=== PATIENT | female | born 1980 | race Caucasian/White ===

== ENCOUNTER 2022-03-08 14:21 | Outpatient (REF) | payer OTHER, SELFPAY ==
[2022-03-08 14:40] LABS: MANUAL DIFF FLAG NO
[2022-03-08 14:51] LABS: Basophils Absolute Auto 0.1 X10*3/uL (0.0-0.2); Basophils Percent Auto 0.6 % (0-2); Eosinophils Absolute Auto 0.2 X10*3/uL (0.0-0.4); Eosinophils Percent Auto 2.3 % (0-4); Hematocrit 42.7 % (37.0-47.0); Hemoglobin 14.1 g/dl (12.0-16.0); Imm Gran Abs Auto 0.04 X10*3/uL (0.00-0.03); Imm Gran Pct Auto 0.5 % (0.0-0.4); Lymphocytes Absolute Auto 1.3 X10*3/uL (1.2-4.9); Lymphocytes Percent Auto 15.5 % (20-40); Mean Corpuscular Hemoglobin 28.3 pg (27.0-33.0); Mean Corpuscular Volume 85.6 fL (80.0-98.0); Mean Platelet Volume 10.6 fL (9.4-12.3); Monocytes Absolute Auto 0.8 X10*3/uL (0.1-1.2); Neutrophils Absolute Auto 6.2 x10*3/uL (2.0-8.3); Neutrophils Percent Auto 72.1 % (45-73); Platelet Count 255 X10*3/uL (160-400); Red Blood Count 4.99 X10*6/uL (4.20-5.50); Red Cell Distribution Width 14.7 % (11.0-16.0); White Blood Count 8.6 X10*3/uL (4.8-10.8)
[2022-03-08 15:41] LABS: Erythrocyte Sedimentation Rate 5 MM/HR (0-20)
[2022-03-08 15:53] LABS: Creatinine Urine 108.62 mg/dL; Protein/Creatinine Ratio, Ur 0.13 (<0.2); Total Protein Urine Random 14 mg/dL (<12)
[2022-03-08 15:56] LABS: Alanine Aminotransferase 45 U/L (0-31); Albumin Level 4.2 g/dL (3.5-5.0); Alkaline Phosphatase 63 U/L (39-117); Anion Gap 16 (12-20); Aspartate Amino Transferase 35 U/L (5-31); Bilirubin Total 0.5 mg/dL (0.0-1.0); Blood Urea Nitrogen 14 mg/dL (9-16); C Reactive Protein 0.38 mg/dL (< or = 0.50); Calcium 9.1 mg/dL (8.4-10.2); Carbon Dioxide 25 mmol/L (22-29); Chloride 104 mmol/L (96-108); Estimated Glomerular Filt Rate > 60; Glucose Random 82 mg/dL (60-115); Potassium 4.1 mmol/L (3.3-5.1); Sodium 141 mmol/L (135-145); Total Protein 7.1 g/dL (6.5-8.0)
[2022-03-12 12:12] LABS: Vitamin D 25-OH, D2 <4 ng/mL; Vitamin D 25-OH, D3 45 ng/mL; Vitamin D 25-OH, Total 45 ng/mL (30-100)
== END 2022-03-08 14:22 | disposition home or self-care (01) ==
LOC: HO.LAB 14:21
PROVIDERS: Visit Provider Internal Medicine Rheumatology
DX: M32.9 Systemic lupus erythematosus, unspecified (principal); Z79.899 Other long term (current) drug therapy; Z87.442 Personal history of urinary calculi
CPT/HCPCS: 36415; 80053; 82306; 84156; 85025; 85652; 86140; 99212

== ENCOUNTER 2022-08-06 08:05 | Outpatient (REF) | payer OTHER, SELFPAY ==
[2022-08-06 08:22] LABS: MANUAL DIFF FLAG NO
[2022-08-06 08:47] LABS: Basophils Percent Auto 0.4 % (0-2); Eosinophils Absolute Auto 0.2 X10*3/uL (0.0-0.4); Eosinophils Percent Auto 1.9 % (0-4); Hematocrit 40.6 % (37.0-47.0); Hemoglobin 13.2 g/dl (12.0-16.0); Imm Gran Abs Auto 0.06 X10*3/uL (0.00-0.03); Imm Gran Pct Auto 0.7 % (0.0-0.4); Lymphocytes Absolute Auto 1.2 X10*3/uL (1.2-4.9); Lymphocytes Percent Auto 14.1 % (20-40); Mean Corpuscular HGB Conc 32.5 g/dl (31.0-35.0); Mean Corpuscular Hemoglobin 28.1 pg (27.0-33.0); Mean Corpuscular Volume 86.4 fL (80.0-98.0); Mean Platelet Volume 10.6 fL (9.4-12.3); Monocytes Absolute Auto 0.7 X10*3/uL (0.1-1.2); Monocytes Percent Auto 8.4 % (2-11); Neutrophils Absolute Auto 6.2 x10*3/uL (2.0-8.3); Neutrophils Percent Auto 74.5 % (45-73); Platelet Count 268 X10*3/uL (160-400); Red Cell Distribution Width 15.9 % (11.0-16.0); White Blood Count 8.3 X10*3/uL (4.8-10.8)
[2022-08-06 09:03] LABS: Alanine Aminotransferase 9 U/L (0-31); Albumin Level 4.2 g/dL (3.5-5.0); Alkaline Phosphatase 66 U/L (39-117); Anion Gap 14 (12-20); Aspartate Amino Transferase 13 U/L (5-31); Bilirubin Total 0.5 mg/dL (0.0-1.0); Blood Urea Nitrogen 20 mg/dL (9-16); C Reactive Protein 0.85 mg/dL (< or = 0.50); Calcium 9.2 mg/dL (8.4-10.2); Carbon Dioxide 22 mmol/L (22-29); Chloride 107 mmol/L (96-108); Estimated Glomerular Filt Rate > 60; Glucose Random 94 mg/dL (60-115); Potassium 4.1 mmol/L (3.3-5.1); Sodium 139 mmol/L (135-145); Total Protein 6.8 g/dL (6.5-8.0)
[2022-08-06 09:35] LABS: Creatinine Urine 103.68 mg/dL; Protein/Creatinine Ratio, Ur 0.14 (<0.2); Total Protein Urine Random 14 mg/dL (<12)
[2022-08-06 09:46] LABS: Erythrocyte Sedimentation Rate 7 MM/HR (0-20)
[2022-08-10 07:33] LABS: Anti DNA DS Antibody 3 IU/mL; Complement C3 117 mg/dL (83-193)
== END 2022-08-06 08:06 | disposition home or self-care (01) ==
LOC: HO.LAB 08:05
PROVIDERS: PCP Internal Medicine; Visit Provider Internal Medicine Rheumatology
DX: M32.9 Systemic lupus erythematosus, unspecified (principal); Z79.899 Other long term (current) drug therapy
CPT/HCPCS: 36415; 80053; 84156; 85025; 85652; 86140; 86160; 86225

== ENCOUNTER → 2022-08-09 10:49 | Outpatient (BNVA) | payer OTHER, SELFPAY | PROVIDERS: PCP Internal Medicine; Visit Provider Internal Medicine Rheumatology | DX: M32.9 Systemic lupus erythematosus, unspecified (principal); N39.0 Urinary tract infection, site not specified; Z79.899 Other long term (current) drug therapy; Z87.442 Personal history of urinary calculi | CPT/HCPCS: 99212 ==

== ENCOUNTER 2023-01-01 09:37 | Outpatient (REF) | payer OTHER, SELFPAY ==
[2023-01-04 22:09] LABS: Anti DNA DS Antibody 3 IU/mL
[2023-01-04 22:38] LABS: Complement C3 117 mg/dL (83-193)
== END 2023-01-01 09:38 | disposition home or self-care (01) ==
LOC: HO.LAB 09:37
PROVIDERS: Visit Provider Internal Medicine Rheumatology
DX: M32.9 Systemic lupus erythematosus, unspecified (principal); Z79.899 Other long term (current) drug therapy
CPT/HCPCS: 36415; 80053; 84156; 85025; 85652; 86140; 86160; 86225

== ENCOUNTER 2023-02-24 09:51 | Outpatient (AMB) | payer OTHER, SELFPAY ==
--- NOTE | 2023-02-24 09:55 | MHC.OFFVIS ---
Intake Intake Visit Reasons: SLE Intake Note: Here for SLE follow up. Stain Remover Required: No Accompanied by: Self / Same As Patient Allergies Sulfa (Sulfonamide Antibiotics) Allergy (Intermediate, Verified 02/24/23 10:02) Rash levofloxacin [From Levaquin] Adverse Reaction (Unknown, Unverified 02/24/23 10:02) Unknown Medication List - Last Reconciled 02/24/23 by Imtiaz Willis MD cholecalciferol (vitamin D3) 50 mcg PO DAILY cyclosporine 0.05% drps ophthalmic (eye) fosfomycin tromethamine 1 packet PO .once a week hydroxychloroquine 200 mg PO BID norethindrone acetate 5 mg PO DAILY HPI HPI Comments History of Present Illness Details The patient returns for evaluation of her SLE. She remains on 200 mg twice a day hydroxychloroquine but admits that she has acquired some prednisone from a friend. She does take that occasionally. Iit sounds like she takes 20 mg for a couple of days and then she improves. The reason she takes the pains is she gets hand arthralgias and overwhelming fatigue in the mornings. There been no problems recently with abdominal pain, chest pain, oral ulcers, fever, or skin rashes. She did have a problem with kidney kidney stones in the past. She thinks they may have returned so has plans to see the urologist. She is currently on some fosfomycin once a week to try to prevent recurrent UTI. She also takes norethindrone for her a regular menses. She says the Restasis eyedrops irritate her eyes. She sometimes skips the dose. There still is some ocular dryness. PFSH Surgical History H/O breast augmentation History of back surgery Hx of cholecystectomy Hx of hernia repair Hx of lithotripsy Hx of tonsillectomy Family History Mother Mental disorder Breast cancer, Onset Age: 50 Depression Anemia Fibromyalgia Father Stomach ulcer Sister Diabetes Brother Asthma Maternal Grandfather Colon cancer, Onset Age: 80 FH: prostate cancer Family/Other Ovarian cancer Social History Alcohol intake: current Alcohol intake frequency: holidays/special occasions only Patient Tobacco Use Status: Never used Tobacco Substance Use Type: Marijuana Current occupational status: employed Current occupation: [employer] Review of Systems Const Details: Episodes of fatigue that occur in conjunction with some hand arthralgias. Negative for appetite change, weight change, fever, chills, malaise Eyes Details: Dry eyes, somewhat irritating with Restasis. Negative for vision change, headaches and dizziness ENT Details: Negative for hearing change, tinnitus, oral ulcer, nose bleeds and oral dryness. Card Details: Negative chest pain, edema and syncope Resp Details: Negative for SOB, cough and wheezing GI Details: Negative indigestion/heartburn, nausea, abdominal pain, bowel changes, diarrhea, constipation and bloody stool. Details: Occasional flank pains. She wonders if this could be recurrence of her kidney stones. Negative for dysuria, hematuria, nocturia, decreased force/flow and genital discharge Skin/Breast Details: Negative for itching, rash, hives, Raynaud's symptoms, sun sensitivity, and skin cancer Psych Details: Negative for anxiety, depression and stress Felix/Lymph Details: Negative for excessive bruising or bleeding. Physical Exam APPEARANCE: Patient in no acute distress EYES no redness, pupils equal and reactive to light, eyelids normal EARS: External ear normal, canal clear and tympanic membrane normal. NOSE/SINUS: Airflow through both nares, no nasal discharge, no bleeding THROAT: Oral mucosa moist, no ulcerations NECK: No thyromegaly or masses, no adenopathy, trachea midline. HEART: Regulrar rhythm, S1-S2 heard, no murmurs, rubs or gallops. LUNG: Clear to percussion and auscultation ABD: Normal bowel sounds, no organomegaly, masses or tenderness. EXTREMITIES: No edema, no calf tenderness, normal peripheral pulses. NEURO: Oriented and alert x3. No focal weakness. Reflexes symmetric. Gait normal. SKIN: No inflammatory or neoplastic lesions. Normal color and turgor JOINT EXAM:.?? There is normal pain-free range of motion of the joints.? ? No areas of joint swelling.?? ? 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 Negative anti ds-DNA, SS-A, SS-B 01/2017 - present - hydroxychloroquine and prednisone; Eye exam OK 04/14 - azathioprine stopped 01/2021 (equivocal response, product unavailable). Prednisone off/on 02/2021 Benlysta - 07/2021( patient improved, off prednisone) Code(s): M32.9 - Systemic lupus erythematosus, unspecified Plan SLE with no signs of active disease. Recent blood work also looked good with no active lupus markers are inflammatory markers. She has been exercising and I encouraged her to continue with that but also to couple with that some calorie restriction to help her lose weight. However some of her morning stiffness, hand pain and fatigue could be some breakthrough SLE activity. It does seem to be helped with occasinal prednisone and she is requesting a short supply in case she needs it. I think that is reasonable. I will give her prescription for the 10 mg tablets to take 2 for 3 days then for 1 for 3 days if needed. She will stay on the hydroxychloroquine. She has an upcoming eye exam. I told her that I was retiring as of the of the year but we would meet again in May. 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 therapy Protein Creatinine Ratio, Ur Today M32.9 - Systemic lupus erythematosus, unspecified, Z79.899 - Other [place] [facility] (current[facility] drug therapy Complete Blood Count Auto Diff Today M32.9 - Systemic lupus erythematosus, unspecified, Z79.899 - Other [place] [facility] (current[facility] drug therapy Erythrocyte Sedimentation Rate Today M32.9 - Systemic lupus erythematosus, unspecified, Z79.899 - Other [place] [facility] (current[facility] drug therapy Complement C3 Today M32.9 - Systemic lupus erythematosus, unspecified, Z79.899 - Other [place] [facility] (current[facility] drug therapy Complement C4 Today M32.9 - Systemic lupus erythematosus, unspecified, Z79.899 - Other termite control representative (current) drug therapy Anti DNA DS Antibody Today M32.9 - Systemic lupus erythematosus, unspecified, Z79.899 - Other [place] [facility] (current) drug therapy Medications: New prednisone For flare-up: 2 daily for 3 days, then one daily for 3 days 9 tabs 2RF M32.9 - Systemic lupus erythematosus, unspecified Coding Level of Care Code Est Pt Level 3 (59733) Diagnoses 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
== END 2023-02-24 10:28 | disposition home or self-care (01) ==
PROVIDERS: PCP Internal Medicine; Visit Provider Internal Medicine Rheumatology
DX: Z79.899 Other long term (current) drug therapy (principal); M32.9 Systemic lupus erythematosus, unspecified
CPT/HCPCS: 99213

== ENCOUNTER → 2023-02-24 09:51 | Outpatient (BNVA) | payer OTHER, SELFPAY | PROVIDERS: PCP Internal Medicine; Visit Provider Internal Medicine Rheumatology ==

== ENCOUNTER 2023-05-06 09:49 | Outpatient (REF) | payer OTHER, SELFPAY ==
[2023-05-06 10:16] LABS: MANUAL DIFF FLAG NO
[2023-05-06 11:04] LABS: Basophils Percent Auto 0.4 % (0-2); Eosinophils Absolute Auto 0.1 X10*3/uL (0.0-0.4); Eosinophils Percent Auto 1.4 % (0-4); Hematocrit 44.5 % (37.0-47.0); Hemoglobin 15.1 g/dl (12.0-16.0); Imm Gran Abs Auto 0.08 X10*3/uL (0.00-0.03); Imm Gran Pct Auto 1.1 % (0.0-0.4); Lymphocytes Absolute Auto 1.5 X10*3/uL (1.2-4.9); Mean Corpuscular HGB Conc 33.9 g/dl (31.0-35.0); Mean Corpuscular Hemoglobin 30.5 pg (27.0-33.0); Mean Corpuscular Volume 89.9 fL (80.0-98.0); Mean Platelet Volume 11.5 fL (9.4-12.3); Monocytes Absolute Auto 0.8 X10*3/uL (0.1-1.2); Monocytes Percent Auto 10.4 % (2-11); Neutrophils Absolute Auto 4.8 x10*3/uL (2.0-8.3); Neutrophils Percent Auto 65.7 % (45-73); Platelet Count 236 X10*3/uL (160-400); Red Blood Count 4.95 X10*6/uL (4.20-5.50); Red Cell Distribution Width 12.9 % (11.0-16.0); White Blood Count 7.3 X10*3/uL (4.8-10.8)
[2023-05-06 11:36] LABS: Anion Gap 11 (12-20); Blood Urea Nitrogen 18 mg/dL (9-16); C Reactive Protein 0.26 mg/dL (< or = 0.50); Calcium 9.2 mg/dL (8.4-10.2); Carbon Dioxide 24 mmol/L (22-29); Chloride 108 mmol/L (96-108); Estimated Glomerular Filt Rate > 60; Glucose Random 88 mg/dL (60-115); Potassium 3.8 mmol/L (3.3-5.1); Sodium 139 mmol/L (135-145)
[2023-05-06 12:02] LABS: Erythrocyte Sedimentation Rate 2 MM/HR (0-20)
[2023-05-06 12:28] LABS: Creatinine Urine 151.44 mg/dL; Protein/Creatinine Ratio, Ur 0.11 (<0.2); Total Protein Urine Random 16 mg/dL (<12)
[2023-05-09 12:53] LABS: Complement C3 83 mg/dL (83-193)
[2023-05-09 17:32] LABS: Anti DNA DS Antibody 3 IU/mL
== END 2023-05-06 09:50 | disposition home or self-care (01) ==
LOC: HO.LAB 09:49
PROVIDERS: Visit Provider Internal Medicine Rheumatology
DX: M32.9 Systemic lupus erythematosus, unspecified (principal); Z79.899 Other long term (current) drug therapy
CPT/HCPCS: 36415; 80048; 82570; 84156; 85025; 85652; 86140; 86160; 86225

== ENCOUNTER 2023-05-12 08:05 | Outpatient (AMB) | payer OTHER, SELFPAY ==
--- NOTE | 2023-05-12 08:09 | A.OFFVIS_ITS ---
Intake Vital Signs 05/12/23 08:12 Height 5 ft 7 in Weight 222 lb 10.67 oz BMI 34.9 BP 146/84 H Blood Pressure Location Lt brachial Position Sitting Pulse 71 Pulse Source Pulse Oximeter Temp 97.9 F Temp Source Skin Pulse Oximetry (%) 97 Intake Visit Reasons: sle Intake Note: Patient presents today to follow up on SLE. Last seen by Dr. Willis on 02/24/23. Reports having eye exam done, not sure. Was going to eye and lasik in [place]. Would like new referral ?? 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 Accompanied by: Self / Same As Patient Allergies Sulfa (Sulfonamide Antibiotics) Allergy (Intermediate, Verified 05/12/23 08:15) Rash levofloxacin [From Levaquin] Adverse Reaction (Unknown, Unverified 05/12/23 08:15) Unknown Medication List - Last Reconciled 05/12/23 by Imtiaz Willis MD cholecalciferol (vitamin D3) 50 mcg PO DAILY fosfomycin tromethamine 1 packet PO .once a week hydroxychloroquine 200 mg PO BID norethindrone acetate 5 mg PO DAILY prednisone For flare-up: 2 daily for 3 days, then one daily for 3 days PRN; HPI HPI Comments History of Present Illness Details The patient returns for evaluation of her SLE. She remains on hydroxychloroquine 200 mg twice a day and Aleve once or twice a day for aches and pains. She says she does have bad spells when she takes the prednisone as we had discussed, 20 mg for 3 days, then 10 mg for 3 days. It sounds like these episodes consist of basically arthralgias and myalgias but no swelling or rash. She has done this twice in the last 2 months or so. That seemed to help her although not remarkably so. She has been having more back pain and did have spinal x-rays reportedly showing degenerative disease. She was worried that it could be or kidney stones but pains are more related to position and lumbar range of motion. She does not notice any joint swelling, oral ulcers or skin rash. She did have eye evaluation earlier this year but wants to switch to a different eye service. She found the Restasis drops irritating so she is no longer taking them, just [id number] drops. [facility] Surgical History History of back surgery Hx of lithotripsy Hx of hernia repair Hx of cholecystectomy H/O breast augmentation Hx of tonsillectomy Family History Mother Mental disorder Breast cancer, Onset Age: 50 Depression Anemia Fibromyalgia Father Stomach ulcer Sister Diabetes Brother Asthma Maternal Grandfather Colon cancer, Onset Age: 80 FH: prostate cancer Family/Other Ovarian cancer Social History Alcohol intake: current Alcohol intake frequency: holidays/special occasions only Patient Tobacco Use Status: Never used Tobacco Substance Use Type: Marijuana Current occupational status: employed Current occupation: [employer] Review of Systems Const Details: Intermittent fatigue. She is exercising regularly at a gym doing spinning classes. Negative for appetite change, weight change, fever, chills, malaise Eyes Details: Intermittent dry eyes continue. She is using [id number] eyedrops, the Restasis caused eye irritation. Negative for vision change,headaches and dizziness ENT Details: Negative for hearing change, tinnitus, oral ulcer, nose bleeds and oral dryness. Card Details: Negative chest pain, edema and syncope Resp Details: Negative for SOB, cough and wheezing GI Details: Negative indigestion/heartburn, nausea, abdominal pain, bowel changes, diarrhea, constipation and bloody stool. Details: Negative for dysuria, hematuria, nocturia, decreased force/flow and genital discharge Skin/Breast Details: Negative for itching, rash, hives, Raynaud's symptoms, sun sensitivity, and skin cancer Neuro Details: Negative for epilepsy, palsy, stroke, changes in speech, tingling and weakness Psych Details: Negative for anxiety, depression and stress Endo Details: Negative for polyuria and polydypsia Felix/Lymph Details: Negative for excessive bruising or bleeding. Physical Exam Vital Signs: Last Vital Signs Temp 97.9 F 05/12/23 08:12 Pulse 71 05/12/23 08:12 BP 146/84 H 05/12/23 08:12 Pulse Ox 97 05/12/23 08:12 BMI result Body Mass Index 34.9 APPEARANCE: Patient in no acute distress EYES no redness, pupils equal and reactive to light, eyelids normal EARS: External ear normal, canal clear and tympanic membrane normal. NOSE/SINUS: Airflow through both nares, no nasal discharge, no bleeding THROAT: Oral mucosa moist, no ulcerations NECK: No thyromegaly or masses, no adenopathy, trachea midline. HEART: Regulrar rhythm, S1-S2 heard, no murmurs, rubs or gallops. LUNG: Clear to percussion and auscultation ABD: Normal bowel sounds, no organomegaly, masses or tenderness. EXTREMITIES: No edema, no calf tenderness, normal peripheral pulses. NEURO: Oriented and alert x3. No focal weakness. Reflexes symmetric. Gait normal. SKIN: No inflammatory or neoplastic lesions. Normal color and turgor JOINT EXAM:.?? Some pain with extremes of lumbar flexion extension with some muscle tenderness. Straight leg raising and right lower extremity reflexes are intact. There is normal pain-free range of motion of the peripheral joints.? ? No areas of joint swelling or tenderness.?? Tender points:.? mild tenderness to digital palpation at the occiput, trapezius, second rib, lateral epicondyle, knees, greater trochanter and gluteal area bilaterally. ? 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 Negative anti ds-DNA, SS-A, SS-B 01/2017 - present - hydroxychloroquine and prednisone; Eye exam OK 04/14,11/2022 - azathioprine stopped 01/2021 (equivocal response, product unavailable). Prednisone off/on 02/2021 Benlysta - 07/2021( patient improved, remains on hydroxychloroquine, on prn prednisone) Code(s): M32.9 - Systemic lupus erythematosus, unspecified Plan The patient still has some episodic migratory arthralgias and fatigue. Today there are no signs of an active inflammatory arthritis. She apparently had an x-ray somewhere showing lumbar degenerative disease which is not too surprising. We discussed possible referral for PT to some lumbar exercises but she wants to do them on her own for now. I think she has some degree of underlying fibromyalgia that could give giving her some of these aches and pains but she does respond occasional prednisone so we will stay with that occasional usage for now. I will continue the hydroxychloroquine as well. She was given a referral to [facility] for her dry eyes and monitoring her hydroxychloroquine use. I did refill the prednisone to be used occasionally. I also encouraged Tylenol or Aleve use if symptoms of pain are present. She should continue with light aerobic activity as she is engaged in. A follow-up in 5 months would be reasonable. Orders: Orders Comprehensive Met. Panel Today M32.9 - Systemic lupus erythematosus, unspecified Erythrocyte Sedimentation Rate Today M32.9 - Systemic lupus erythematosus, unspecified Complete Blood Count Auto Diff Today M32.9 - Systemic lupus erythematosus, unspecified Protein Creatinine Ratio, Ur Today M32.9 - Systemic lupus erythematosus, unspecified C Reactive Protein Today M32.9 - Systemic lupus erythematosus, unspecified Referrals Ophthalmology Referral M32.9 - Systemic lupus erythematosus, unspecified, Z79.899 - Other correction (current) drug therapy Medications: Changed From prednisone For flare-up: 2 daily for 3 days, then one daily for 3 days PRN; M32.9 - Systemic lupus erythematosus, unspecified To prednisone For flare-up: 2 daily for 3 days, then one daily for 3 days; 9 tabs 2RF M32.9 - Systemic lupus erythematosus, unspecified Coding Level of Care Code Est Pt Level 3 (73125) Diagnoses Long-term use of hydroxychloroquine Z79.899 Osteoarthritis of lumbar spine M47.816 Systemic lupus M32.9
[2023-05-12 08:12] VITALS: BP 146/84; PULSE 71; TEMP 36.6; O2SAT 97; BMI 34.9
== END 2023-05-12 09:10 | disposition home or self-care (01) ==
PROVIDERS: PCP Internal Medicine; Visit Provider Internal Medicine Rheumatology
DX: Z79.899 Other long term (current) drug therapy (principal); M47.816 Spondylosis without myelopathy or radiculopathy, lumbar region; M32.9 Systemic lupus erythematosus, unspecified
CPT/HCPCS: 99213

== ENCOUNTER → 2023-05-12 08:05 | Outpatient (BNVA) | payer OTHER, SELFPAY | PROVIDERS: PCP Internal Medicine; Visit Provider Nurse Practitioner Family ==

== ENCOUNTER 2023-07-28 11:09 | Outpatient (AMB) | payer OTHER, SELFPAY ==
--- NOTE | 2023-07-28 11:10 | MHC.OFFVIS ---
Intake Vital Signs 07/28/23 11:11 Height 5 ft 7 in Weight 229 lb BMI 35.9 Intake Visit Reasons: umbilical hernia Intake Note: This patient presents for an assessment for an umbilical hernia. Patient c/o; reports bulge, reports occasional discomfort, reports no changes in bowel movements habits. 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 She had undergone laparoscopic cholecystectomy in [place] over 10 years ago. She says she developed a hernia above her umbilicus and this was repaired a few months later laparoscopically. However, she says the hernia on the same area above the umbilicus has recurred. She has had this for about 10 years now This has been starting to bother her so she wants this repaired. She denies GI complaints. COUNTS INCLUDE 234 BEDS AT THE [facility] Medical History (Updated 07/28/23 @ 11:37 by Ran Golden MD) Morbid obesity Incisional hernia Surgical History History of back surgery Hx of lithotripsy Hx of hernia repair Hx of cholecystectomy H/O breast augmentation Hx of tonsillectomy Family History Mother Mental disorder Breast cancer, Onset Age: 50 Depression Anemia Fibromyalgia Father Stomach ulcer Sister Diabetes Brother Asthma Maternal Grandfather Colon cancer, Onset Age: 80 FH: prostate cancer Family/Other Ovarian cancer Social History Alcohol intake: current Alcohol intake frequency: holidays/special occasions only Patient Tobacco Use Status: Never used Tobacco Substance Use Type: Marijuana Current occupational status: employed Current occupation: [employer] Review of Systems Const Denies chills and Denies fever(s) Card Denies chest pain, Denies dyspnea and Denies dyspnea on exertion Resp Denies cough, Denies dyspnea and Denies dyspnea on exertion GI Denies hematochezia and Denies change in bowel habits Denies hematuria Musc Denies back pain and Denies limited range of motion Neuro Denies focal weakness and Denies convulsions Psych Denies depression and Denies mood swings Physical Exam Vital Signs: BMI result Body Mass Index 35.9 Const Other: Obese General: comfortable and no acute distress Orientation/consciousness: patient oriented x3 Neck Neck: Yes no lymphadenopathy Resp Auscultation: clear to auscultation bilaterally Cardio Rhythm: regular rhythm GI Other: Vague hernia above the umbilicus, about 3 cm, easily reducible, more pronounced with Valsalva Palpation (GI): Soft to palpation, nontender and no guarding Neuro General: patient oriented x3 Assessment & Plan Assessment & Plan (1) Incisional hernia: Code(s): K43.2 - Incisional hernia without obstruction or gangrene Plan: She has what appears to be recurrent hernia on the port site above the umbilicus. This appears to be partially reducible. She wants this repaired. I explained the technique of repair with likely mesh placement. I reviewed the risks including but not limited to bleeding, infections, bowel injury, recurrence, poor healing, as well as the benefits and alternatives. She does have a high BMI so she is at risk for recurrence. She understands the above and wants to proceed I ordered for a CT scan of the abdomen and pelvis to define this hernia defect better as she has a large amount of subcutaneous fat which makes exam difficult. Orders: Orders CT abdomen pelvis wo IV con Today K43.2 - Incisional hernia without obstruction or gangrene Coding Level of Care Code New Pt Level 3 (99546) Diagnoses Incisional hernia K43.2
[2023-07-28 11:11] VITALS: BMI 35.9
== END 2023-07-28 11:34 | disposition home or self-care (01) ==
PROVIDERS: PCP Internal Medicine; Visit Provider Surgery
DX: K43.2 Incisional hernia without obstruction or gangrene (principal)
CPT/HCPCS: 99203

== ENCOUNTER → 2023-07-28 11:09 | Outpatient (BNVA) | payer OTHER, SELFPAY | PROVIDERS: PCP Internal Medicine; Visit Provider Surgery ==

== ENCOUNTER 2023-09-05 08:25 | Outpatient (REF) | payer OTHER, SELFPAY ==
--- NOTE | ~2023-09-05 | CT_ITS ---
EXAMINATION: CT ABDOMEN WITHOUT CONTRAST CLINICAL INFORMATION: Incisional hernia without obstruction or gangrene. COMPARISON: CT abdomen pelvis 09/22/2022. TECHNIQUE: Contiguous axial thin section helical images of the abdomen were performed without contrast. The data set was reformatted in the coronal and sagittal planes and reviewed on an independent workstation. This CT examination was performed using dose optimization techniques as appropriate, variously including the following: *Automated exposure control *Adjustment of mA and/or kV according to patient size (this includes techniques or standardized protocols for targeted exams where dose is matched to indication/reason for exam; i.e. extremities or head) *Use of iterative reconstruction technique DLP: 637 mGy-cm FINDINGS: LUNG BASES: The visualized lung bases are unremarkable. Bilateral breast prostheses are partially visualized. LIVER, GALLBLADDER, AND BILIARY TREE: The liver is normal in size, shape, and attenuation. No focal hepatic lesion or biliary ductal dilatation is present. The gallbladder is unremarkable with no evidence of radiopaque gallstones, gallbladder wall thickening, or obvious pericholecystic inflammatory changes. PANCREAS: Unremarkable. SPLEEN: Unremarkable. ADRENAL GLANDS: Unremarkable. KIDNEYS AND URETERS: The kidneys are normal in size, shape, and attenuation there is bilateral nonobstructing nephrolithiasis with the largest stones measuring 3 to 4 mm in size.. No hydronephrosis, hydroureter, or ureteral calculi seen. No perinephric stranding. GASTROINTESTINAL TRACT: The small and large bowel are unremarkable aside from colonic diverticula without diverticulitis. The region of the appendix is not included on this abdominal CT. ABDOMINAL WALL: There is a periumbilical hernia seen containing only fat. The peritoneal defect is 2.9 x 3.8 cm. The hernia sac is not all included on this CT abdomen only and measures 5.9 x 3.5 in maximal transverse dimension. Appearances are quite similar to the 09/22/2022 CT scan from [facility]. LYMPH NODES: No retroperitoneal lymphadenopathy. VASCULAR: Unremarkable. OSSEOUS STRUCTURES: Degenerative changes are seen at L4-L5 and L5-S1. CT/CT abdomen wo IV con IMPRESSION: 1. Periumbilical hernia containing only fat. 2. Bilateral nonobstructing nephrolithiasis. 3. Colonic diverticulosis without diverticulitis. 4. Degenerative changes L4-L5 and L5-S1. Fleischner guidelines were followed.
== END 2023-09-05 08:26 | disposition home or self-care (01) ==
LOC: HO.CT 08:25
PROVIDERS: PCP Internal Medicine; Visit Provider Surgery
DX: K43.2 Incisional hernia without obstruction or gangrene (principal)
CPT/HCPCS: 74150

== ENCOUNTER 2023-10-11 08:35 | Outpatient (AMB) | payer OTHER, SELFPAY ==
--- NOTE | 2023-10-11 08:42 | A.OFFVIS_ITS ---
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 Willis, presents today for follow up and test results. Patient reports tiredness and malaise. 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 Gonzalez 43 yoF returns for evaluation of her SLE. She remains on hydroxychloroquine 200 mg twice a day and Aleve once or twice a day for aches and pains. She feels prednisone is the only thing that helps her feel alert and improved when she has episodes of arthralgias and myalgias. She does not get swelling or rash. She denies joint swelling, oral ulcers or skin rash. She did have eye evaluation done. She continues with xlio-pux-wdyjgep drops. She is following with Urology and is being treated for interstitial cystitis. --Umbilical Hernia Surgery November 152023 --Vein ablation treatment October 17 05/12/2023 Dr. Willis: The patient returns for evaluation of her SLE. She remains on hydroxychloroquine 200 mg twice a day and Aleve once or twice a day for aches and pains. She says she does have bad spells when she takes the prednisone as we had discussed, 20 mg for 3 days, then 10 mg for 3 days. It sounds like these episodes consist of basically arthralgias and myalgias but no swelling or rash. She has done this twice in the last 2 months or so. That seemed to help her although not remarkably so. She has been having more back pain and did have spinal x-rays reportedly showing degenerative disease. She was worried that it could be or kidney stones but pains are more related to position and lumbar range of motion. She does not notice any joint swelling, oral ulcers or skin rash. She did have eye evaluation earlier this year but wants to switch to a different eye service. She found the Restasis drops irritating so she is no longer taking them, just knhr-jme-fjfeusd drops. [facility] Medical History (Updated 10/11/23 @ 09:20 by Kierra Dye [facility]) Fatigue Morbid obesity Incisional hernia Surgical History History of back surgery Hx of lithotripsy Hx of hernia repair Hx of cholecystectomy H/O breast augmentation Hx of tonsillectomy Family History Mother Mental disorder Breast cancer, Onset Age: 50 Depression Anemia Fibromyalgia Father Stomach ulcer Sister Diabetes Brother Asthma Maternal Grandfather Colon cancer, Onset Age: 80 FH: prostate cancer Family/Other Ovarian cancer Social History Alcohol intake: current Alcohol intake frequency: holidays/special occasions only Patient Tobacco Use Status: Never used Tobacco Substance Use Type: Marijuana Current occupational status: employed Current occupation: [employer] Review of Systems Const All systems reviewed & are unremarkable except as noted in HPI and below Physical Exam Vital Signs: Last Vital Signs Pulse 73 10/11/23 08:51 BP 150/100 H 10/11/23 08:51 Pulse Ox 94 10/11/23 08:51 Oxygen Delivery Method Room Air 10/11/23 08:51 BMI result Body Mass Index 36.4 APPEARANCE: Patient in no acute distress EYES no redness, pupils equal and reactive to light, eyelids normal EARS: External ear normal, canal clear and tympanic membrane normal. NOSE/SINUS: Airflow through both nares, no nasal discharge, no bleeding THROAT: Oral mucosa moist, no ulcerations NECK: No thyromegaly or masses, no adenopathy, trachea midline. HEART: Regular rhythm, S1-S2 heard, no murmurs, rubs or gallops. LUNG: Clear to auscultation ABD: Normal bowel sounds, no organomegaly, masses or tenderness. EXTREMITIES: No edema, no calf tenderness, normal peripheral pulses. NEURO: Oriented and alert x3. No focal weakness. Reflexes symmetric. Gait normal. SKIN: No inflammatory or neoplastic lesions. Normal color and turgor JOINT EXAM:.?? Some pain with extremes of lumbar flexion extension with some muscle tenderness. Straight leg raising and right lower extremity reflexes are intact. There is normal pain-free range of motion of the peripheral joints.? ? No areas of joint swelling or tenderness.?? Tender points:.? mild tenderness to digital palpation at the occiput, trapezius, second rib, lateral epicondyle, knees, greater trochanter and gluteal area bilaterally. ? Results Reviewed Results Reviewed: Laboratory Tests 05/06/23 10:15 WBC 7.3 Hgb 15.1 ESR 2 Creatinine 0.69 C-Reactive Protein 0.26 Double Strand DNA Ab 3 Complement C3 83 Complement C4 15 Assessment & Plan Assessment & Plan (1) Long-term use of hydroxychloroquine: Code(s): Z79.899 - Other longterm (current) drug therapy (2) Osteoarthritis of lumbar spine: Code(s): M47.816 - Spondylosis without myelopathy or radiculopathy, lumbar region Qualifiers: Spinal osteoarthritis complication: without myelopathy or radiculopathy Qualified Code(s): M47.816 - Spondylosis without myelopathy or radiculopathy, lumbar region (3) Systemic lupus: Comment: Initial manifestations of left sided pleural effusion and pericardial effusion, arthritis, positive SALAS,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 Negative anti ds-DNA, SS-A, SS-B 01/2017 - present - hydroxychloroquine and prednisone; Eye exam OK 04/14,11/2022 - azathioprine stopped 01/2021 (equivocal response, product unavailable). Prednisone off/on 02/2021 Benlysta - 07/2021( patient improved, remains on hydroxychloroquine, on prn prednisone) Code(s): M32.9 - Systemic lupus erythematosus, unspecified Qualifiers: Systemic lupus erythematosus organ involvement: other Systemic lupus erythematosus type: other Qualified Code(s): M32.19 - Other organ or system involvement in systemic lupus erythematosus Plan #SLE: The patient continues with episodic migratory arthralgias and fatigue especially after her spinning class which she does 4 times per week. Today there are no signs of an active inflammatory arthritis but she is concerned about her level of fatigue. She has used Benlysta but denies effectiveness especially with the fatigue. This is unfortunate since Benlysta is typically helpful with fatigue. She is not anemic, denies cardiovascular concerns and none observed on PE. She denies depression or thyroid issues which could cause fatigue. Her LUPUS measures have been WNL. Continue the hydroxychloroquine as well. I did refill the prednisone to be used occasionally. After her surgeries we will discuss options for immunosuppressive therapy that can be added to the HCQ. #OA Lumbar:Lumbar degenerative disease. We discussed possible referral for PT to some lumbar exercises but she wants to do them on her own for now. I think she has some degree of underlying fibromyalgia that could give giving her some of these aches and pains but she does respond occasional prednisone so we will stay with that occasional usage for now. I also encouraged Tylenol or Aleve use if symptoms of pain are present. She should continue with her exercise activities as tolerated. 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 We requested the records. Will order updated CBC, CMP and lupus markers. A follow-up in 5 months would be reasonable. I spent 25 minutes reviewing history, evaluating patient and documenting. Orders: Orders Comprehensive Met. Panel Today M32.9 - Systemic lupus erythematosus, unspecified, Z79.899 - Other intermediate card tender (current) drug therapy Immunoglobulins,IgG IgA IgM Today M32.19 - Other organ or system involvement in systemic lupus erythematosus, Z79.899 - Other intermediate card tender (current) drug therapy TSH reflex Free T4 Today R53.83 - Other fatigue C Reactive Protein Today M32.9 - Systemic lupus erythematosus, unspecified, Z79.899 - Other longterm (current) drug therapy Complete Blood Count Auto Diff Today M32.9 - Systemic lupus erythematosus, unspecified, Z79.899 - Other longterm (current) drug therapy Erythrocyte Sedimentation Rate Today M32.9 - Systemic lupus erythematosus, unspecified, Z79.899 - Other intermediate card tender (current) drug therapy Protein Creatinine Ratio, Ur Today M32.9 - Systemic lupus erythematosus, unspecified, Z79.899 - Other longterm (current) drug therapy Sjogren's Antibodies Today M32.19 - Other organ or system involvement in systemic lupus erythematosus, Z79.899 - Other longterm (current) drug therapy Immunofixation Pnl, Serum Today M32.19 - Other organ or system involvement in systemic lupus erythematosus, Z79.899 - Other longterm (current) drug therapy Protein Electrophoresis, Serum Today M32.19 - Other organ or system involvement in systemic lupus erythematosus, Z79.899 - Other longterm (current) drug therapy Medications: New prednisone 5 mg PO DAILY 60 tabs 0RF M32.19 - Other organ or system involvement in systemic lupus erythematosus, Z79.899 - Other intermediate card tender (current) drug therapy Coding Level of Care Code Est Pt Level 4 (78808) Diagnoses Long-term use of hydroxychloroquine Z79.899 Spondylosis of lumbar region without myelopathy or radiculopathy M47.816 Spinal osteoarthritis complication: without myelopathy or radiculopathy Other systemic lupus erythematosus with other organ involvement M32.19 Systemic lupus erythematosus organ involvement: other Systemic lupus erythematosus type: other
[2023-10-11 08:51] VITALS: BP 150/100; PULSE 73; O2SAT 94; BMI 36.4
== END 2023-10-11 09:11 | disposition home or self-care (01) ==
PROVIDERS: PCP Internal Medicine; Visit Provider Nurse Practitioner Family
DX: Z79.899 Other long term (current) drug therapy (principal); M47.816 Spondylosis without myelopathy or radiculopathy, lumbar region; M32.19 Other organ or system involvement in systemic lupus erythematosus
CPT/HCPCS: 99214

== ENCOUNTER → 2023-10-11 08:35 | Outpatient (BNVA) | payer OTHER, SELFPAY | PROVIDERS: PCP Internal Medicine; Visit Provider Nurse Practitioner Family ==

== ENCOUNTER 2023-10-11 09:17 | Outpatient (REF) | payer OTHER, SELFPAY ==
[2023-10-11 10:58] LABS: MANUAL DIFF FLAG NO
[2023-10-11 11:06] LABS: Basophils Percent Auto 0.4 % (0-2); Eosinophils Absolute Auto 0.1 X10*3/uL (0.0-0.4); Hematocrit 45.9 % (37.0-47.0); Hemoglobin 15.7 g/dl (12.0-16.0); Imm Gran Abs Auto 0.06 X10*3/uL (0.00-0.03); Imm Gran Pct Auto 0.9 % (0.0-0.4); Lymphocytes Absolute Auto 1.2 X10*3/uL (1.2-4.9); Lymphocytes Percent Auto 17.5 % (20-40); Mean Corpuscular HGB Conc 34.2 g/dl (31.0-35.0); Mean Corpuscular Volume 93.5 fL (80.0-98.0); Mean Platelet Volume 10.5 fL (9.4-12.3); Monocytes Absolute Auto 0.6 X10*3/uL (0.1-1.2); Monocytes Percent Auto 9.1 % (2-11); Neutrophils Absolute Auto 4.9 x10*3/uL (2.0-8.3); Neutrophils Percent Auto 71.1 % (45-73); Platelet Count 219 X10*3/uL (160-400); Red Blood Count 4.91 X10*6/uL (4.20-5.50); White Blood Count 6.9 X10*3/uL (4.8-10.8)
[2023-10-11 11:29] LABS: Alanine Aminotransferase 15 U/L (0-31); Albumin Level 4.1 g/dL (3.5-5.0); Alkaline Phosphatase 46 U/L (39-117); Anion Gap 11 (12-20); Aspartate Amino Transferase 19 U/L (5-31); Bilirubin Total 0.4 mg/dL (0.0-1.0); Blood Urea Nitrogen 24 mg/dL (9-16); Calcium 9.6 mg/dL (8.4-10.2); Carbon Dioxide 25 mmol/L (22-29); Chloride 107 mmol/L (96-108); Estimated Glomerular Filt Rate > 60; Glucose Random 73 mg/dL (60-115); Potassium 4.2 mmol/L (3.3-5.1); Sodium 139 mmol/L (135-145); Total Protein 7.2 g/dL (6.5-8.0)
[2023-10-11 11:59] LABS: Erythrocyte Sedimentation Rate 2 MM/HR (0-20)
[2023-10-11 12:46] LABS: Creatinine Urine 165.05 mg/dL; Protein/Creatinine Ratio, Ur 0.07 (<0.2); Total Protein Urine Random 12 mg/dL (<12)
[2023-10-12 21:13] LABS: Prot Elec - Alpha1 0.2 g/dL (0.2-0.3); Prot Elec - Alpha2 0.8 g/dL (0.5-0.9); Prot Elec - Beta 1 0.4 g/dL (0.4-0.6); Prot Elec - Beta 2 0.3 g/dL (0.2-0.5); Prot Elec - Gamma 0.9 g/dL (0.8-1.7); Prot Elec - Total Protein 6.7 g/dL (6.1-8.1)
[2023-10-12 23:28] LABS: Antibody to SS-A Antigen <1.0 NEG AI (<1.0 NEG); Antibody to SS-B Antigen <1.0 NEG AI (<1.0 NEG)
[2023-10-14 14:33] LABS: IgA 147 mg/dL (47-310); IgG 1110 mg/dL (600-1640); IgM 77 mg/dL (50-300)
== END 2023-10-11 09:18 | disposition home or self-care (01) ==
LOC: HO.10HDL 09:17
PROVIDERS: Visit Provider Nurse Practitioner Family
DX: M32.9 Systemic lupus erythematosus, unspecified (principal); M32.19 Other organ or system involvement in systemic lupus erythematosus; Z79.899 Other long term (current) drug therapy
CPT/HCPCS: 36415; 80053; 82570; 82784; 84156; 84165; 85025; 85652; 86140; 86235; 86334

== ENCOUNTER 2024-03-27 15:28 | Outpatient (REF) | payer OTHER, SELFPAY ==
[2024-03-27 15:57] LABS: MANUAL DIFF FLAG NO
[2024-03-27 16:42] LABS: Basophils Percent Auto 0.5 % (0-2); Eosinophils Percent Auto 0.5 % (0-4); Imm Gran Abs Auto 0.04 X10*3/uL (0.00-0.03); Imm Gran Pct Auto 0.7 % (0.0-0.4); Lymphocytes Absolute Auto 1.2 X10*3/uL (1.2-4.9); Lymphocytes Percent Auto 20.5 % (20-40); Mean Corpuscular HGB Conc 34.9 g/dl (31.0-35.0); Mean Corpuscular Hemoglobin 31.3 pg (27.0-33.0); Mean Corpuscular Volume 89.6 fL (80.0-98.0); Monocytes Absolute Auto 0.6 X10*3/uL (0.1-1.2); Monocytes Percent Auto 9.8 % (2-11); Neutrophils Absolute Auto 4.1 x10*3/uL (2.0-8.3); Platelet Count 207 X10*3/uL (160-400)
[2024-03-27 16:56] LABS: Appearance Urine Cloudy; Color Urine Yellow; Glucose Urine UA Negative (Negative); Leukocyte Esterase Urine Moderate (2+) (Negative); Nitrite Urine Negative (Negative); PH 6.5 (5.0-9.0); UMIC TRIGGER UA YES; Urine Blood Trace (Negative); Urine Ketones Trace mg/dL (Negative); Urine Protein Negative (Neg-Trace)
[2024-03-27 17:12] LABS: Alanine Aminotransferase 22 U/L (0-31); Albumin Level 4.3 g/dL (3.5-5.0); Alkaline Phosphatase 54 U/L (39-117); Anion Gap 13 (12-20); Aspartate Amino Transferase 23 U/L (5-31); Bilirubin Total 0.3 mg/dL (0.0-1.0); Blood Urea Nitrogen 14 mg/dL (9-16); C Reactive Protein 0.44 mg/dL (< or = 0.50); Calcium 9.2 mg/dL (8.4-10.2); Carbon Dioxide 22 mmol/L (22-29); Chloride 109 mmol/L (96-108); Estimated Glomerular Filt Rate > 60; Glucose Random 92 mg/dL (60-115); Potassium 3.7 mmol/L (3.3-5.1); Sodium 140 mmol/L (135-145); Total Protein 7.3 g/dL (6.5-8.0)
[2024-03-27 17:20] LABS: Bacteria Urine 4+ (None Seen); Erythrocyte Sedimentation Rate 5 MM/HR (0-20); Hyaline Casts Urine 0-2 /LPF (0-2); RBC Urine 0-2 /HPF (0-2)
[2024-03-27 17:29] LABS: TSH reflex Free T4 1.09 uIU/mL (0.32-4.0)
[2024-03-27 17:32] LABS: Creatinine Urine 93.86 mg/dL; Protein/Creatinine Ratio, Ur 0.12 (<0.2); Total Protein Urine Random 11 mg/dL (<12)
[2024-03-28 08:23] LABS: HBS Num1 187.66 mIU/mL (0-7.99); HBc Num1 0.08 S/CO (0.00-0.79); HBsAGNum1 0.57 S/CO (0.00-0.99); Hepatitis A Antibody IgM 0.13 Index (0-0.79); Hepatitis B Core Antibody Nonreactive (Nonreactive); Hepatitis B Surface Antigen Negative (Negative); ~HepC Num1 0.12 S/CO (0.00-0.79); ~Hepatitis A Antibody IgM Nonreactive (Nonreactive); ~Hepatitis B Surface Antibody REACTIVE (Nonreactive); ~Hepatitis C Antibody Nonreactive (Nonreactive)
[2024-03-28 12:33] LABS: Complement C3 127 mg/dL (83-193)
[2024-03-28 14:08] LABS: Anti DNA DS Antibody 2 IU/mL
[2024-03-30 03:03] LABS: TS Negative Control Passed; TS Panel A 0; TS Panel B 0; TS Positive Control Passed; TSpotTB Negative (Negative)
[2024-03-31 05:27] LABS: DNAds, Crithidia Antibody Negative (Negative)
== END 2024-03-27 15:29 | disposition home or self-care (01) ==
LOC: HO.LAB 15:28
PROVIDERS: Nurse Practitioner Family; Visit Provider Student in an Organized Health Care Education/Training Program
DX: M32.19 Other organ or system involvement in systemic lupus erythematosus (principal); Z11.59 Encounter for screening for other viral diseases; Z11.7 Encounter for testing for latent tuberculosis infection; R53.83 Other fatigue
CPT/HCPCS: 36415; 80053; 81001; 82570; 84156; 84443; 85025; 85652; 86140; 86160; 86225; 86255; 86481; 86704; 86706; 86709; 86803; 87340

== ENCOUNTER 2024-04-04 14:21 | Outpatient (AMB) | payer OTHER, SELFPAY ==
--- NOTE | 2024-04-04 14:27 | MHC.OFFVIS ---
Vital Signs 04/04/24 14:30 Height 5 ft 7 in Weight 239 lb 10.279 oz BMI 37.5 BP 140/82 H Blood Pressure Location Rt brachial Position Sitting Pulse 82 Pulse Source Pulse Oximeter Pulse Oximetry (%) 96 Oxygen Delivery Method Room Air Intake Visit Reasons: longterm use of hydroxychloroquine/CM Intake Note: Patient presents for SLE. Allergies Sulfa (Sulfonamide Antibiotics) Allergy (Intermediate, Verified 04/04/24 14:30) Rash levofloxacin [From Levaquin] Adverse Reaction (Unknown, Verified 04/04/24 14:30) Unknown Medication List - Last Reconciled 04/04/24 by Khushboo Bailon MD cholecalciferol (vitamin D3) 50 mcg PO DAILY fosfomycin tromethamine 1 packet PO .once a week hydroxychloroquine 200 mg PO BID hydroxyzine HCl 25 mg PO BEDTIME naltrexone 3 mg PO BEDTIME norethindrone acetate 5 mg PO DAILY prednisone 2.5 mg PO DAILY HPI Comments Details: This is a 43 year old female with SLE who presents for follow-up. She remains on hydroxychloroquine 200 mg Twice daily and prednisone 2.5 mg p.r.n.. She states that she 1 bad flare-up a month, would have generalized fatigue, body aches, joint pains especially the wrists, hands, thighs, low back. She would take prednisone usually starting at 10 mg a day and she tapers it off in 5-7 days. Denies any recent fevers or joint swelling. Denies any skin rashes. She states that she gets recurrent UTIs and she takes fosfomycin regularly once weekly. She is complaining of dry she mentions that she uses artificial tears 3 to 4 times a day. She has used prednisolone eyedrops and Restasis drops in the past without much improvement and they caused eye irritation FOR[facility]LY [facility] Medical History (Updated 04/04/24 @ 15:04 by Khushboo Bailon MD) Dry eyes Fatigue Morbid obesity Incisional hernia Surgical History History of back surgery Hx of lithotripsy Hx of hernia repair Hx of cholecystectomy H/O breast augmentation Hx of tonsillectomy Family History Mother Mental disorder Breast cancer, Onset Age: 50 Depression Anemia Fibromyalgia Father Stomach ulcer Sister Diabetes Brother Asthma Maternal Grandfather Colon cancer, Onset Age: 80 FH: prostate cancer Family/Other Ovarian cancer Social History Alcohol intake: current Alcohol intake frequency: holidays/special occasions only Patient Tobacco Use Status: Never used Tobacco Substance Use Type: Marijuana Current occupational status: employed Current occupation: [employer] Review of Systems Eyes Reports dry eyes Musc Reports back pain, Reports myalgias, Reports arthralgias and Denies joint swelling Skin/Breast Denies rash Physical Exam Vital Signs: Last Vital Signs Pulse 82 04/04/24 14:30 BP 140/82 H 04/04/24 14:30 Pulse Ox 96 04/04/24 14:30 Oxygen Delivery Method Room Air 04/04/24 14:30 BMI result Body Mass Index 37.5 Const General: cooperative, healthy appearing and comfortable Nutritional Appearance: obese morbidly obese Orientation/consciousness: patient oriented x3 Limitations: no limitations HEENT Head: Yes normocephalic and Yes atraumatic Mouth: moist mucous membranes Resp Effort & Inspection: normal respiratory effort and able to speak in complete sentences Auscultation: clear to auscultation bilaterally Skin General skin exam: no rashes or lesions noted Neuro General: patient oriented x3 Extrem Other: No active synovitis Normal nailfold capillaroscopy Assessment & Plan Assessment & Plan (1) Systemic lupus: Comment: Initial manifestations of left sided pleural effusion and pericardial effusion, arthritis, 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 Negative anti ds-DNA, SS-A, SS-B 01/2017 - present - hydroxychloroquine and prednisone; Eye exam OK 04/14,11/2022 - azathioprine stopped 01/2021 (equivocal response, product unavailable). Prednisone off/on 02/2021 Benlysta - 07/2021( patient discontinued it due to skin rashes. Did not feel much improvement) Code(s): M32.9 - Systemic lupus erythematosus, unspecified Category: Medical Qualifiers: Systemic lupus erythematosus type: other Systemic lupus erythematosus organ involvement: other Qualified Code(s): M32.19 - Other organ or system involvement in systemic lupus erythematosus Plan: This is a 43-year-old female with SLE who presents for follow-up. Doing very well on hydroxychloroquine 200 mg Twice daily and prednisone as needed. Continue current meds Labs before next visit in 6 months (2) Long-term use of hydroxychloroquine: Comment: Eye exam 04/2023 Code(s): Z79.899 - Other predatory animal exterminator (current) drug therapy Category: Medical Plan: Patient aware of risk of retinopathy associated with hydroxychloroquine. Advised patient to make an appointment with automatic car wash attendant soon (3) Recurrent UTI: Code(s): N39.0 - Urinary tract infection, site not specified Category: Medical Plan: On fosfomycin regularly once weekly due to recurrent UTIs (4) Dry eyes: Code(s): H04.123 - Dry eye syndrome of bilateral lacrimal glands Category: Medical Plan: Uses artificial tears regularly, had side effects with prednisolone eyedrops and Restasis. Follow-up with automatic car wash attendant Plan I spent 47 minutes reviewing patient's chart, evaluating patient, ordering diagnostic workup, counseling patient and documenting in the chart Orders: Orders Complement C3 6 Months M32.19 - Other organ or system involvement in systemic lupus erythematosus Complement C4 6 Months M32.19 - Other organ or system involvement in systemic lupus erythematosus C Reactive Protein 6 Months M32.19 - Other organ or system involvement in systemic lupus erythematosus Protein Creatinine Ratio, Ur 6 Months M32.19 - Other organ or system involvement in systemic lupus erythematosus Complete Blood Count Auto Diff 6 Months M32.19 - Other organ or system involvement in systemic lupus erythematosus Anti DNA DS Antibody 6 Months M32.19 - Other organ or system involvement in systemic lupus erythematosus Erythrocyte Sedimentation Rate 6 Months M32.19 - Other organ or system involvement in systemic lupus erythematosus DNA Double Stranded-Crithidia 6 Months M32.19 - Other organ or system involvement in systemic lupus erythematosus UA w Microscopic 6 Months M32.19 - Other organ or system involvement in systemic lupus erythematosus Comprehensive Met. Panel 6 Months M32.19 - Other organ or system involvement in systemic lupus erythematosus Anti Extractable Nuclear Ag 6 Months M32.19 - Other organ or system involvement in systemic lupus erythematosus Coding Level of Care Code Est Pt Level 5 (55696) Complex EM visit Add On G2211 Diagnoses Other systemic lupus erythematosus with other organ involvement M32. Systemic lupus erythematosus type: other Systemic lupus erythematosus organ involvement: other Long-term use of hydroxychloroquine Z79.899 Recurrent UTI N39.0 Dry eyes H04.123
[2024-04-04 14:30] VITALS: BP 140/82; PULSE 82; O2SAT 96; BMI 37.5
== END 2024-04-04 15:00 | disposition home or self-care (01) ==
PROVIDERS: PCP Internal Medicine; Visit Provider Student in an Organized Health Care Education/Training Program
DX: M32.19 Other organ or system involvement in systemic lupus erythematosus (principal); Z79.899 Other long term (current) drug therapy; N39.0 Urinary tract infection, site not specified; H04.123 Dry eye syndrome of bilateral lacrimal glands
CPT/HCPCS: 99215

== ENCOUNTER → 2024-04-04 14:21 | Outpatient (BNVA) | payer OTHER, SELFPAY | PROVIDERS: PCP Internal Medicine; Visit Provider Student in an Organized Health Care Education/Training Program ==

== ENCOUNTER 2024-10-18 12:20 | Outpatient (REF) | payer OTHER, SELFPAY ==
[2024-10-18 12:43] LABS: MANUAL DIFF FLAG NO
[2024-10-18 14:12] LABS: Appearance Urine Cloudy; Color Urine Yellow; Glucose Urine UA Negative (Negative); Leukocyte Esterase Urine Moderate (2+) (Negative); Nitrite Urine Negative (Negative); PH 5.5 (5.0-9.0); Specific Gravity - Urine 1.025 (1.005-1.025); UMIC TRIGGER UA YES; Urine Blood Moderate (2+) (Negative); Urine Ketones Trace mg/dL (Negative); Urine Protein Trace mg/dL (Neg-Trace)
[2024-10-18 14:27] LABS: Basophils Percent Auto 0.3 % (0-2); Eosinophils Absolute Auto 0.1 X10*3/uL (0.0-0.4); Eosinophils Percent Auto 1.4 % (0-4); Hematocrit 43.8 % (37.0-47.0); Hemoglobin 15.2 g/dl (12.0-16.0); Imm Gran Abs Auto 0.05 X10*3/uL (0.00-0.03); Imm Gran Pct Auto 0.8 % (0.0-0.4); Lymphocytes Absolute Auto 1.2 X10*3/uL (1.2-4.9); Lymphocytes Percent Auto 19.4 % (20-40); Mean Corpuscular HGB Conc 34.7 g/dl (31.0-35.0); Mean Corpuscular Hemoglobin 31.1 pg (27.0-33.0); Mean Corpuscular Volume 89.8 fL (80.0-98.0); Monocytes Absolute Auto 0.6 X10*3/uL (0.1-1.2); Monocytes Percent Auto 9.5 % (2-11); Neutrophils Absolute Auto 4.3 x10*3/uL (2.0-8.3); Neutrophils Percent Auto 68.6 % (45-73); Platelet Count 239 X10*3/uL (160-400); Red Blood Count 4.88 X10*6/uL (4.20-5.50); Red Cell Distribution Width 13.3 % (11.0-16.0); White Blood Count 6.3 X10*3/uL (4.8-10.8)
[2024-10-18 14:36] LABS: Bacteria Urine 4+ (None Seen); Hyaline Casts Urine 0-2 /LPF (0-2); Squamous Epithelial Cell Urine >20 /HPF (0-2)
--- OUTSIDE RECORDS SUMMARY | 2024-10-18 14:38 | XMS_ITS | Clinical Summary ---
Author Organization [facility] Address [address] [place] [address] Phone Care Team Providers Care Diamond Assorter Name Role Phone Physician, No Pcp Primary Care Provider Unavaila ble Allergies Active Allergy Reactions Criticality Noted Date Comments Levofloxacin 09/02/2011 Sulfa (Sulfonamide Antibiotics) Hives 12/2021 Medications fosfomycin (MONUROL) 3 gram packet USE 1 PACK ONCE A WEEK 10/22/2022 Active hydroxychloroqu ine (PLAQUENIL) 200 mg tablet Take 1 tablet (200 mg total) by mouth 2 (two) times a day. 06/16/2021 Active cloNIDine (CATAPRES) 0.1 mg tablet Take 1 tablet (0.1 mg total) by mouth 2 (two) times a day. 01/25/2024 Active hydrOXYzine HCL (ATARAX) 25 mg tablet Take 1 tablet (25 mg total) by mouth at bedtime. 05/25/2024 Active cholecalciferol (VITAMIN D-3) 50 mcg (2,000 unit) capsule Take 1 capsule (2,000 Units total) by mouth 1 (one) time each day. : TAKE 1 CAPSULE BY MOUTH EVERY DAY 90 capsule 3 07/16/2024 Active norethindrone (AYGESTIN) 5 mg tablet Take 1 tablet (5 mg total) by mouth 1 (one) time each day. 90 each 3 07/16/2024 Active Active Problems Problem Noted Date Diagnosed Date PCOS (polycystic ovarian syndrome) 05/21/2024 Frequent UTI 01/05/2022 Overview (05/21/2024): Sees urology, hx urosepsis 2020 Referred to ID by Urology Renal stones 01/05/2022 Overview (05/21/2024): Hx stent 2021 Lumbar degenerative disc disease 07/05/2019 Incidental lung nodule 04/18/2017 SLE (systemic lupus erythema tosus) ([facility] V24, [facility] V28) 03/24/2017 Overview (05/21/2024): Initial manifestations of left sided pleural effusion and pericardial effusion, arthritis, 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 Negative anti ds-DNA, SS-A, SS-B 01/2017 - present - hydroxychloroquine and prednisone; Eye exam OK 04/14 - azathioprine stopped 01/2021 (equivocal response, product unavailable). Prednisone off 02/2021 Benlysta HTN (hypertension) 08/16/2016 Morbid obesity ([facility] V24, [facility] V28) 2015 Iron deficiency anemia 10/15/2009 Immunizations Name Administration Dates Next Due Hep B, Unspecified 12/14/2011 Influenza Quadravalent, MDCK , 0.5ml, preservative free (Flucelvax) 6mo and older 06/13/2022,04/13/2021,03/14/2019 Influenza Quadravalent, MDCK , 0.5ml, with preservative (Flucelvax) 6mo and older 04/10/2020 Influenza Quadrivalent, 0.5m l, preservative free (Fluarix; FluLaval; Fluzone) ages 6mo and older (Afluria) 3yo and older 05/13/2023 Influenza, Unspecified 04/10/2020 Measles 12/14/2011 Mumps 12/14/2011 PPD Test 02/22/2017,10/07/2009,09/23/2008 Helijia SARS-CoV-2 COVID-19, mRNA, LNP-S, preservative free 04/23/2021,10/31/2020,10/01/2020 Td Tetanus diptheria (Tdvax) 7yo and older 01/16 Tdap Tetanus diptheria acell ular pertussis (Boostrix; Adacel) 7yo and older 08/27/2008 Varicella live (Varivax) 12mo and older 12/14/19 12 Surgical History Surgery Date Site/Laterality Comments BREAST RECONSTRUCTION PROCEDURE: BREAST RECONSTRUCTION; COMMENT: augmentation TONSILLECTOMY PROCEDURE: HISTORICAL TONSILLECTOMY BACK SURGERY 04/2009 PROCEDURE: HISTORICAL BACK SURGERY CHOLECYSTECTOMY 10/2009 PROCEDURE: FL CHOLECYSTECTOMY BREAST SURGERY 1999 Bilateral PROCEDURE: FL UNLISTED PROCEDURE BREAST; COMMENT: 17 yrs ago implants HERNIA REPAIR PROCEDURE: HISTORICAL HERNIA REPAIR/UMB CYSTOSCOPY 10/08/2021 PROCEDURE: FL CYSTOURETHROSCOPY; COMMENT: Dr. Petit KIDNEY STONE SURGERY 04/19/2022 Bilateral PROCEDURE: FL NEPHROLITHOTOMY REMOVAL CALCULUS; COMMENT: By Dr. Kong - bilateral lithotripsy with stent placement Medical History Medical History Date Comments PCOS (polycystic ovarian syndrome) DX:PCOS (polycystic ovarian syndrome) Anemia DX:Anemia; COMME NT: irregular periods Hernia DX:Hernia Lupus DX:Lupus Diverticulitis 05/2018 DX:Diverticuliti s; COMMENT: seen in [facility] ER Renal stones 01/05/2022 DX:Renal stones; COMMENT: Hx stent 2021 Family History Medical History Relation Name Comments Ovarian cancer Aunt Asthma Brother Other: stomach ulcer Father Colon cancer Maternal Grandfather 80s Prostate cancer Maternal Grandfather Anemia Mother 48y Breast cancer Mother 48y 50s Depression Mother 48y Mental illness Mother 48y Other: fibromyalgia Mother 48y Diabetes Sister half - sister; maternal Cancer of Small Bowel Neg Hx Kidney cancer Neg Hx Pancreatic cancer Neg Hx Uterine cancer Neg Hx Relation Name Status Comments Aunt Brother Alive Father Alive does not know Maternal Grandfather Maternal Grandmother Mother 48y Alive breast cancer Paternal Grandfather Paternal Grandmother Sister Alive x1 half Social History Tobacco Use Types Packs/Day Years Used Date Smoking Tobacco: Never Smokeless Tobacco: Never Tobacco Cessation:Counseling Given: Not Answered Alcohol Use Standard Drinks/Week Comments Yes 0 (1 standard drink = 0.6 oz pur e alcohol) Comments No Sex and Gender Information Value Date Recorded Sex Assigned at Female 07/20/2024 9:20 AM EST Legal Sex Female 2:21 PM EST Gender Identity Female 07/20/2024 9:20 AM EST Sexual Orientation Straight 07/20/2024 9: 20 AM EST Obstetrics History Para Term AB IAB SAB Ectopic Multiple Livin g Live Births 0 0 0 0 0 0 0 0 0 0 0 Last Filed Vital Signs Vital Sign Reading Time Taken Comments Blood Pressure 140/85 07/16/2024 11:13 AM EST Pulse 90 07/16/2024 11:13 AM EST Temperature - - Respiratory Rate - - Oxygen Saturation - - Inhaled Oxygen Concentration - - Weight 114 kg (252 lb) 07/16/2024 11:13 AM EST Height 170.2 cm (5' 7 ) 07/16/2024 11:13 AM EST Body Mass Index 39.47 07/16/2024 11:13 AM EST Plan of Treatment Health Maintenance Due Date Last Done Comments Hepatitis B Vaccines (2 of 3 - 19+ 3-dose series) 01/11/2012 12/14/2011 Colorectal Cancer Screening: Colonoscopy 05/30/2022 Depression Screening 05/30/2022 Social Influencers of Health Screening 05/30/2022 Breast Cancer Screening 10/16/2022 10/16/2020, 02/11 COVID-19 Vaccine ( season) 2024 05/13/2023, 06/13/2022, 04/23/2021, Additional history exists Cholesterol Screening (Lipid Panel) 03/14/2024 03/14/2019 Hypertension/CHF/CAD Annual BMP Blood Test 07/10/2024 11/09/2022, 06/11/2018 Influenza Vaccine (Season Ended) 2025 05/13/2023, 06/13/2022, 04/13/2021, Additional history exists Cervical Cancer Screening: HPV 10/01/2026 10/01/2021 DTaP,Tdap,and Td Vaccines (3 - Td or Tdap) 01/16/2029 01/16/2019, 08/27/2008 Varicella Vaccines Aged Out 12/14/2011 No longer eligible based on patient's age to complete this topic HIV Screening Completed 10/01/2021 Hepatitis C Screening Completed 10/01/2021 HIB Vaccines Aged Out No longer eligi ble based on patient's age to complete this topic HPV Vaccines Aged Out No longer eligi ble based on patient's age to complete this topic Hepatitis A Vaccines Aged Out No long er eligible based on patient's age to complete this topic IPV Vaccines Aged Out No longer eligi ble based on patient's age to complete this topic MMR Vaccines Aged Out No longer eligi ble based on patient's age to complete this topic Meningococcal ACWY Vaccine Aged Out N o longer eligible based on patient's age to complete this topic Meningococcal B Vaccine Aged Out No l onger eligible based on patient's age to complete this topic Pneumococcal Vaccine: Pediatrics (0 to 5 Years) and At-Risk Patients (6 to 64 Years) Aged Out No longer eligible based on patient's age to complete this topic RSV Immunization Patients Under 20 months Aged Out No longer eligible based on patient's age to complete this topic Procedures Procedure Name Priority Date/Time Associated Diagnosis Comments ANNUAL BMP BLOOD TEST Routine 11/09/2022 HPV Routine 10/01/2021 HEPATITIS C SCREENING Routine 10/01/2021 HIV SCREENING Routine 10/01/2021 SCR MAMMO BI INCL CAD Routine 10/16/2020 9:15 AM EDT Encounter for screening mammogram for malignant neoplasm of breast LIPID PANEL Routine 03/14/2019 from Last 3 Months or Most Recently Relevant to Health Maintenance Results * Annual BMP Blood Test (11/09/2022) [facility] Annual BMP Blood Test ABSTRACTED Historical Provider HEALTH MAINTENANCE Final Result * Cervical Cancer Screening: HPV (10/01/2021) [facility] Cervical Cancer Screening: HPV negative,a bstracted [facility] Provider HEALTH MAINTENANCE Final Result * HIV Screening (10/01/2021) [facility] HIV Screening ABSTRACTED [facility] Provider HEALTH MAINTENANCE Final Result * Hepatitis C Screening (10/01/2021) [facility] Hepatitis C Screening ABSTRACTED Historical Provider HEALTH MAINTENANCE Final Result * SCR MAMMO BI INCL CAD (10/16/2020 9:15 AM EDT) Anatomical Region Laterality Modality Radiographic Joan ging 08/19/2020 1:53 PM EST Narrative 10/16/2020 9:25 AM EDT This is a summary report. The complete report is available in the patient's medical record. If you cannot access the medical record, please contact the sending organization for a detailed fax or copy. Full field digital screening mammography, reviewed with CAD and compared to previous. ??Both standard and implant displaced views were performed bilaterally. ??Bilateral saline implants remain appropriately positioned and configured. ??The breasts are composed mostly of fatty tissue. ??No suspicious mass, architectural distortion or suspicious calcifications are identified. IMPRESSION: : No mammographic evidence of malignancy. BIRADS 1-Negative; N. 5 year breast cancer risk assessment 0.9 % Lifetime breast cancer risk assessment 13.3 % Breast cancer risk category Low (<15%) Procedure Note Ezekiel Whiteside MD - 06/15/2022 This is a summary report. The complete report is available in thepatient's medical record. If you cannot access the medical record, pleasecontact the sending organization for a detailed fax or copy. Full field digital screening mammography, reviewed with CAD and comparedto previous. Both standard and implant displaced views were performedbilaterally. Bilateral saline implants remain appropriately positionedand configured. The breasts are composed mostly of fatty tissue. Nosuspicious mass, architectural distortion or suspicious calcifications areidentified. IMPRESSION: : No mammographic evidence of malignancy. BIRADS 1-Negative; N. 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
--- OUTSIDE RECORDS SUMMARY | 2024-10-18 14:38 | XMS_ITS | Clinical Summary ---
Author Organization [facility] Address [address] [place] [address] Care Team Providers Care Country Director Name Role Phone Buck Brady MD Primary Care Provider [phone] Social History Tobacco Use Types Packs/Day Years Used Date Smoking Tobacco: Never Assessed Sex and Gender Information Value Date Recorded Sex Assigned at Not on file Gender Identity Not on file Sexual Orientation Not on file Job Start Date Occupation Industry Not on file Not on file Not on file Plan of Treatment Health Maintenance Due Date Last Done Comments Hepatitis B Vaccines (1 of 3 - 3-dose series) 1978 Hepatitis C Screening 1978 COVID-19 Vaccine (#1) 1978 Depression Screening 1990 Preventative Health Evaluation 1996 Cervical Cancer Screening (P ap Smear) 1999 DTap / Tdap / Td (2 - Td or Tdap) 08/27/2018 009 Colon Cancer Screening (Colonoscopy) 2023 Influenza Vaccine (#1) 2024 03/14/2019 Pneumococcal Vaccine Aged Out No long er eligible based on patient's age to complete this topic RSV Ped < 20 months Aged Out No longe r eligible based on patient's age to complete this topic Care Teams Country Director Relationship Specialty Start Date End Date Buck Brady MD PCP - General Internal Medicine 09/04/20
[2024-10-18 14:49] LABS: Alanine Aminotransferase 48 U/L (0-31); Albumin Level 4.1 g/dL (3.5-5.0); Alkaline Phosphatase 55 U/L (39-117); Anion Gap 11 (12-20); Aspartate Amino Transferase 58 U/L (5-31); Bilirubin Total 0.4 mg/dL (0.0-1.0); Blood Urea Nitrogen 18 mg/dL (9-16); C Reactive Protein 0.46 mg/dL (< or = 0.50); Carbon Dioxide 21 mmol/L (22-29); Chloride 110 mmol/L (96-108); Estimated Glomerular Filt Rate > 60; Glucose Random 106 mg/dL (60-115); Sodium 138 mmol/L (135-145); Total Protein 7.2 g/dL (6.5-8.0)
[2024-10-18 14:52] LABS: Creatinine Urine 179.16 mg/dL; Protein/Creatinine Ratio, Ur 0.08 (<0.2); Total Protein Urine Random 15 mg/dL (<12)
[2024-10-18 15:06] LABS: Erythrocyte Sedimentation Rate 3 MM/HR (0-20)
[2024-10-19 21:48] LABS: Anti DNA DS Antibody 3 IU/mL; SM/Ribonucleoprotein Ab >8.0 POS AI (<1.0 NEG); Smith Protein >8.0 POS AI (<1.0 NEG)
[2024-10-20 17:08] LABS: Complement C3 118 mg/dL (83-193)
[2024-10-27 14:28] LABS: DNAds, Crithidia Antibody Negative (Negative)
== END 2024-10-18 12:21 | disposition home or self-care (01) ==
LOC: HO.LAB 12:20
PROVIDERS: Visit Provider Student in an Organized Health Care Education/Training Program
DX: M32.19 Other organ or system involvement in systemic lupus erythematosus (principal)
CPT/HCPCS: 36415; 80053; 81001; 82570; 84156; 85025; 85652; 86140; 86160; 86225; 86235; 86255

== ENCOUNTER 2025-01-31 09:13 | Outpatient (AMB) | payer OTHER, SELFPAY ==
--- NOTE | 2025-01-31 09:17 | MHC.OFFVIS ---
Vital Signs 01/31/25 09:18 Height 5 ft 7 in Weight 118 lb 6 oz BMI 18.5 BP 120/90 H Blood Pressure Location Rt brachial Position Sitting Pulse 82 Pulse Source Pulse Oximeter Pulse Oximetry (%) 96 Oxygen Delivery Method Room Air Intake Visit Reasons: SLE Intake Note: Patient presents for SLE. Accompanied by: Self / Same As Patient Allergies Sulfa (Sulfonamide Antibiotics) Allergy (Intermediate, Verified 01/31/25 09:18) Rash levofloxacin (From Levaquin) Adverse Reaction (Unknown, Verified 01/31/25 09:18) Unknown HPI HPI SLE: Details: She has been experiencing joint pain in hands, wrists, shoulders, knees in legs. She has been taking prednisone 2.5 mg daily. When she is off of prednisone pain is uncontrolled. When she is flaring she has swelling in her feet. Morning stiffness is 30 minutes. She takes hydroxychloroquine 200 mg twice a day. She is following up with Urology who has been managing recurrent UTIs. She had a cystoscopy recently and we will be seeing Urology for follow-up tomorrow. She has been diagnosed with interstitial cystitis. She has been taking prophylactic antibiotic weekly. Most recent urine analysis did not show UTIs. She was treated for UTI 2 weeks ago. She denies fevers, dyspnea, pleurisy, urinary symptoms. She has a new rash that developed right lateral leg for a month. No benefit with using topical OTC hydrocortisone 1%. Her mother was in the hospital for 7 months since she gained 40 lb with eating in the evening, which she did not do in the past. She also was not compliant with her exercise program with spinning 3 times a week during the time that her mother was hospitalized. She has resumed her regular exercise program and is working on losing weight. [facility] Medical History Dry eyes Fatigue Morbid obesity Incisional hernia Surgical History History of back surgery Hx of lithotripsy Hx of hernia repair Hx of cholecystectomy H/O breast augmentation Hx of tonsillectomy Family History Mother Mental disorder Breast cancer, Onset Age: 50 Depression Anemia Fibromyalgia Father Stomach ulcer Sister Diabetes Brother Asthma Maternal Grandfather Colon cancer, Onset Age: 80 FH: prostate cancer Family/Other Ovarian cancer Social History Alcohol intake: current Alcohol intake frequency: holidays/special occasions only Patient Tobacco Use Status: Never used Tobacco Substance Use Type: Marijuana Current occupational status: employed Current occupation: [employer] Physical Exam Vital Signs: Last Vital Signs Pulse 82 01/31/25 09:18 BP 120/90 H 01/31/25 09:18 Pulse Ox 96 01/31/25 09:18 Oxygen Delivery Method Room Air 01/31/25 09:18 BMI result Body Mass Index 18.5 Const Other: General: Comfortable CVS: RRR Respiratory: clear to auscultation bilaterally. Good respiratory effort Skin: Right lateral calf coin size erythematous lesion with scales present MSK: No tender joints. No synovitis. Normal range of motion of upper extremities and lower extremities. Assessment & Plan Assessment & Plan (1) Systemic lupus: Comment: Inflammatory arthritis is not controlled. She also has a complicated history with recurrent UTIs managed with fosfomycin weekly and was recently diagnosed with interstitial cystitis. She follows up with Urology. 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 She has also been septic from UTIs in the past. We discussed importance of trying to reduce prednisone use with adding on a steroid sparing agent to better control her joint symptoms and reduce infection risk for patient. Discussed side effects, benefits and drug monitoring of methotrexate. 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 Negative anti ds-DNA, SS-A, SS-B. 01/2017 - present - hydroxychloroquine and prednisone; Eye exam OK 04/14,11/2022. 04/2017 - azathioprine stopped 01/2021 (equivocal response, product unavailable). Prednisone off/on since 02/2021. 10/2020 Benlysta - 07/2021( patient discontinued it due to skin rashes. Did not feel much improvement). Code(s): M32.9 - Systemic lupus erythematosus, unspecified Category: Medical Qualifiers: Systemic lupus erythematosus organ involvement: other Systemic lupus erythematosus type: other Qualified Code(s): M32.19 - Other organ or system involvement in systemic lupus erythematosus Plan: Continue hydroxychloroquine 400 mg daily. Requesting last eye exam from [facility] for hydroxychloroquine surveillance She will try to reduce frequency of prednisone to 2.5 mg every other day After lab results are back, I will send prescription for methotrexate 12.5 mg once weekly and folic acid 1 mg daily. She will need labs 1 month after starting methotrexate with CBC, creatinine, AST, ALT Information on methotrexate given to patient X-ray bilateral hands, feet, knees ordered to evaluate for inflammatory arthritis versus degenerative arthritis We discussed importance of quadricep muscle strengthening Return to clinic in 3 months (2) Long-term use of hydroxychloroquine: Comment: Eye exam 04/2023. Code(s): Z79.899 - Other group home (current) drug therapy Category: Medical Plan: Requesting last eye exam (3) Recurrent UTI: Code(s): N39.0 - Urinary tract infection, site not specified Category: Medical Plan: On fosfomycin regularly once weekly due to recurrent UTIs She will be following up with Urology tomorrow (4) Rash: Comment: Right lateral calf. She has a coin size lesion with scales. Differential diagnosis includes fungal infection versus psoriasis. Failed topical treatment with OTC hydrocortisone 1%. Code(s): R21 - Rash and other nonspecific skin eruption Category: Medical Plan: I recommend that she try antifungal agent, which she will obtain from pharmacy OTC Plan 05/2024 Orders: Orders Erythrocyte Sedimentation Rate Today M32.9 - Systemic lupus erythematosus, unspecified Protein Creatinine Ratio, Ur Today M32.9 - Systemic lupus erythematosus, unspecified Aspartate Amino Transferase Today M32.9 - Systemic lupus erythematosus, unspecified Complement C4 Today M32.9 - Systemic lupus erythematosus, unspecified C Reactive Protein Today M32.9 - Systemic lupus erythematosus, unspecified XR Foot Augie 3V Today M13.0 - Polyarthritis, unspecified, M32.19 - Other organ or system involvement in systemic lupus erythematosus XR Hand Bilat min 3v Today M13.0 - Polyarthritis, unspecified, M32.19 - Other organ or system involvement in systemic lupus erythematosus XR Knee Augie 3V Today M13.0 - Polyarthritis, unspecified, M32.19 - Other organ or system involvement in systemic lupus erythematosus Complete Blood Count Auto Diff Today M32.9 - Systemic lupus erythematosus, unspecified Alanine Aminotransferase Today M32.9 - Systemic lupus erythematosus, unspecified Complement C3 Today M32.9 - Systemic lupus erythematosus, unspecified Creatinine Today M32.9 - Systemic lupus erythematosus, unspecified DNA Double Stranded-Crithidia Today M32.9 - Systemic lupus erythematosus, unspecified UA ClnCatch+Micro w/rflx Cult Today M32.9 - Systemic lupus erythematosus, unspecified SALAS Reflex Titer and Pattern Today M32.19 - Other organ or system involvement in systemic lupus erythematosus Coding Level of Care Code Est Pt Level 4 (29315) Complex EM visit Add On G2211 Diagnoses Other systemic lupus erythematosus with other organ involvement M32.19 Systemic lupus erythematosus organ involvement: other Systemic lupus erythematosus type: other Long-term use of hydroxychloroquine Z79.899 Recurrent UTI N39.0 Rash R21 Time Spent (min) 30
[2025-01-31 09:18] VITALS: BP 120/90; PULSE 82; O2SAT 96; BMI 18.5
--- OUTSIDE RECORDS SUMMARY | 2025-01-31 09:36 | XMS_ITS ---
Author Name [facility] Organization Unknown Care Team Organization Name Specialty Phone Email Start Date End [facility] te [facility] Lydia Dobbs Primary [facility] 05/04/20222023
--- OUTSIDE RECORDS SUMMARY | 2025-01-31 09:36 | XMS_ITS | Encounter Summary ---
Author Organization [facility] Address [address] [place] [address] Care Team Providers Care Resident Engineer Name Role Phone Physician, No Pcp Primary Care Provider Unavaila ble Encounter Details Date Type Department Care Team (Late st Contact Info) Description 01/04/2025 Lab Requisition [facility] - Main Lab [address] [place] [address] [place], [place] [address] [facility] [address] [place] [address] Dysuria Social History Tobacco Use Types Packs/Day Years Used Date Smoking Tobacco: Never Smokeless Tobacco: Never Alcohol Use Standard Drinks/Week Comments Yes 0 (1 standard drink = 0.6 oz pur e alcohol) Comments No Sex and Gender Information Value Date Recorded Sex Assigned at Female 07/20/2024 9:20 AM EST Legal Sex Female 2:21 PM EST Gender Identity Female 07/20/2024 9:20 AM EST Sexual Orientation Straight 07/20/2024 9: 20 AM EST documented as of this encounter Plan of Treatment Not on file documented as of this encounter Procedures Procedure Name Priority Date/Time Associated Diagnosis Comments CULTURE URINE Routine 01/04/2025 12:00 AM EDT Dysuria documented in this encounter Results * Culture urine (01/04/2025 12:00 AM EDT) Culture, Urine <10,000 CFU/mL gram positive cocci, insignificant count, no further workup 01/05/2025 12:35 PM EDT [facility] Urine Urine specimen from urethra / Unknown Non-blood Collection / Unknown 01/04/2025 01/04/2025 5:44 PM EDT us Tara [facility] MICROBIOLOGY - GENERAL ORDERABLES Final Result [facility] [address] [place] [address], documented in this encounter Visit Diagnoses Diagnosis Dysuria documented in this encounter Care Teams Resident Engineer Relationship Specialty Start Date End Date Physician, No Pcp PCP - General 07/20/24 documented as of this encounter
--- OUTSIDE RECORDS SUMMARY | 2025-01-31 09:36 | XMS_ITS | Clinical Summary ---
Author Organization [facility] Address [address] [place] [address] Care Team Providers Care Dividing Machine Operator Helper Name Role Phone Buck Brady MD Primary Care Provider [phone] Social History Tobacco Use Types Packs/Day Years [...] Cancer Screening (Colonoscopy) 2023 Influenza Vaccine (#1) 2025 03/14/2019 Pneumococcal Vaccine Aged Out No long er eligible based on patient's age to complete this topic RSV Ped < 20 months Aged Out No longe r eligible based on patient's age to complete this topic Care Teams Dividing Machine Operator Helper Relationship Specialty Start Date End Date Buck Brady MD PCP - General Internal Medicine 09/04/20
== END 2025-01-31 10:11 | disposition home or self-care (01) ==
LOC: HO.RHES 09:14
PROVIDERS: PCP Internal Medicine; Visit Provider Internal Medicine Rheumatology
DX: M32.19 Other organ or system involvement in systemic lupus erythematosus (principal); Z79.899 Other long term (current) drug therapy; N39.0 Urinary tract infection, site not specified; R21 Rash and other nonspecific skin eruption
CPT/HCPCS: 99214

== ENCOUNTER 2025-02-14 09:22 | Outpatient (REF) | payer OTHER, SELFPAY ==
--- NOTE | ~2025-02-14 | XR_ITS ---
Examination: Three-view x-ray bilateral feet TECHNIQUE: AP, oblique, lateral view lower extremity, bilateral feet INDICATION: M32.19 - Other organ or system involvement in systemic lupus erythematosus Prior: None FINDINGS: Right foot: Hallux valgus deformity is present. Bipartite sesamoids are present at the first metatarsal. There is no joint diastases or malalignment. There is small enthesophyte at the Achilles attachment onto calcaneus. Left foot: There is hallux valgus deformity. Joint spaces are preserved. There is no joint diastases or melena. There is a small Achilles enthesophyte at calcaneus. XR/XR Foot Augie 3V IMPRESSION: Right foot: Hallux valgus deformity. Small Achilles enthesophyte. Left foot: Hallux valgus deformity. Small Achilles enthesophyte. Electronically signed by: Olvin Morrison MD 02/14/2025 10:57 AM EDT
--- NOTE | ~2025-02-14 | XR_ITS ---
Exam: Three-view bilateral hands TECHNIQUE: PA, ball-catcher's, and lateral view bilateral hands INDICATION: M32.19 - Other organ or system involvement in systemic lupus erythematosus Prior: None FINDINGS: Right hand: Joint spaces are preserved. There are no erosions. There is no deformity on ball-catcher's view. Bone mineral density is within normal limits. There are no osteophytes. Left hand: Joint spaces are preserved. There are no erosions. There is no deformity on ball-catcher's view. Bone mineral density is within normal limits. There are no osteophytes. XR/XR Hand Bilat min 3v IMPRESSION: Unremarkable bilateral hands. Electronically signed by: Olvin Morrison MD 02/14/2025 10:59 AM EDT
--- NOTE | ~2025-02-14 | XR_ITS ---
Exam: X-ray, bilateral knees.XR KNEE 3 VIEWS BILATERAL TECHNIQUE: Three views lower extremity joint, bilateral knees INDICATION: Chronic bilateral knee pain COMPARISON: None available. FINDINGS: RIGHT KNEE: There is no joint effusion. There is questionable narrowing of the medial joint space. There is no abnormal soft tissue calcifications. There are no osteophytes. LEFT KNEE: There is no joint effusion. There is questionable narrowing of the medial joint space. There is no abnormal soft tissue calcifications. There are no osteophytes. XR/XR Knee Augie 3V IMPRESSION: Right knee: There is questionable narrowing of the medial joint space, otherwise unremarkable exam. Left knee: There is questionable narrowing of the medial joint space, otherwise unremarkable exam. Electronically signed by: Olvin Morrison MD 02/14/2025 11:01 AM EDT
[2025-02-14 09:59] LABS: MANUAL DIFF FLAG NO
[2025-02-14 10:12] LABS: Hematocrit 45.8 % (37.0-47.0); Hemoglobin 15.8 g/dl (12.0-16.0); Imm Gran Abs Auto 0.07 X10*3/uL (0.00-0.03); Imm Gran Pct Auto 0.9 % (0.0-0.4); Lymphocytes Absolute Auto 1.2 X10*3/uL (1.2-4.9); Mean Corpuscular HGB Conc 34.5 g/dl (31.0-35.0); Mean Corpuscular Hemoglobin 30.7 pg (27.0-33.0); Mean Corpuscular Volume 88.9 fL (80.0-98.0); NRBC Abs Auto 0.000 X10*3/uL (0.0-0.012); NRBC Pct Auto 0.0 /100WBC (0.0-0.2); Platelet Count 239 X10*3/uL (160-400); Red Blood Count 5.15 X10*6/uL (4.20-5.50); White Blood Count 8.0 X10*3/uL (4.8-10.8)
--- OUTSIDE RECORDS SUMMARY | 2025-02-14 10:29 | XMS_ITS | Clinical Summary ---
Author Organization [facility] Address [address] [place] [address] Care Team Providers Care Employment Adjudicator Name Role Phone Buck Brady MD Primary Care Provider [phone] Social History Tobacco Use Types Packs/Day Years [...] age to complete this topic Care Teams Employment Adjudicator Relationship Specialty Start Date End Date Buck Brady MD PCP - General Internal Medicine 09/04/20
--- OUTSIDE RECORDS SUMMARY | 2025-02-14 10:29 | XMS_ITS | Encounter Summary ---
Author Organization [facility] Address [address] [place] [address] Care Team Providers Care Hardware Trainer Name Role Phone Physician, No Pcp Primary Care Provider Unavaila ble Encounter Details Date Type Department Care Team (Late st Contact Info) Description 01/04/2025 Lab Requisition [facility] - Main Lab [address] [place] [address] [place], [place] [address] [place] [address] Dysuria Social History Tobacco Use Types Packs/Day [...] no further workup 01/05/2025 12:35 PM EDT [facility] Urine Urine specimen from urethra / Unknown Non-blood Collection / Unknown 01/04/2025 01/04/2025 5:44 PM EDT us Tara [facility] MICROBIOLOGY - GENERAL ORDERABLES Final Result [facility] [address] [place] [address], documented in this encounter Visit Diagnoses Diagnosis Dysuria documented in this encounter Care Teams Hardware Trainer Relationship Specialty Start Date End Date Physician, No Pcp PCP - General 07/20/24 documented as of this encounter
[2025-02-14 10:51] LABS: Alanine Aminotransferase 26 U/L (0-31); Aspartate Amino Transferase 30 U/L (5-31); Estimated Glomerular Filt Rate > 60
[2025-02-14 11:31] LABS: Appearance Urine Clear; Glucose Urine UA Negative (Negative); PH 8.0 (5.0-9.0); Specific Gravity - Urine 1.020 (1.005-1.025); UMIC TRIGGER UACC YES
[2025-02-14 11:45] LABS: UACC Culture Trigger YES
[2025-02-14 12:12] LABS: Protein/Creatinine Ratio, Ur 0.10 (<0.2); Total Protein Urine Random 12 mg/dL (<12)
[2025-02-19 09:13] LABS: DNAds, Crithidia Antibody Negative (Negative)
[2025-02-19 22:04] LABS: Anti Nuclear Antibody Screen POSITIVE (NEGATIVE); Anti Nuclear Antibody Titer 1:1280 titer
== END 2025-02-14 09:23 | disposition home or self-care (01) ==
LOC: HO.XRAY 09:22
PROVIDERS: Visit Provider Internal Medicine Rheumatology
DX: M32.19 Other organ or system involvement in systemic lupus erythematosus (principal); M13.0 Polyarthritis, unspecified
CPT/HCPCS: 36415; 73130; 73562; 73630; 81001; 82565; 82570; 84156; 84450; 84460; 85025; 85652; 86038; 86039; 86140; 86160; 86255; 87086

== ENCOUNTER → 2025-02-14 10:03 | Outpatient (BNV) | payer OTHER, SELFPAY | PROVIDERS: Visit Provider Radiology Diagnostic Radiology | DX: M25.561 Pain in right knee (principal); M25.562 Pain in left knee; M32.19 Other organ or system involvement in systemic lupus erythematosus; M20.11 Hallux valgus (acquired), right foot; M20.12 Hallux valgus (acquired), left foot | CPT/HCPCS: 73130; 73562; 73630 ==

== ENCOUNTER 2025-05-07 09:08 | Outpatient (AMB) | payer OTHER, SELFPAY ==
--- NOTE | 2025-05-07 09:13 | A.OFFVIS_ITS ---
Vital Signs 05/07/25 09:14 Height 5 ft 7 in Weight 264 lb 12.403 oz BMI 41.5 BP 122/80 Blood Pressure Location Lt brachial Position Sitting Pulse 65 Pulse Source Pulse Oximeter Pulse Oximetry (%) 95 Oxygen Delivery Method Room Air Intake Visit Reasons: 3 Months Intake Note: Patient presents for SLE. Accompanied by: Self / Same As Patient Allergies Sulfa (Sulfonamide Antibiotics) Allergy (Intermediate, Verified 05/07/25 09:17) Rash levofloxacin (From Levaquin) Adverse Reaction (Unknown, Verified 05/07/25 09:17) Unknown HPI HPI 3 Months: Details: MTX caused headaches, fatigue and nausea. SHe stopped it after 3 weeks. No fever, dyspnea, pleurisy, oral ulcers, raynauds, joint pain, urinary symptoms. She is taking prednisone every other or two days. She takes aleeve BID Dermatology disagnosed with psoriasis on lesion on right lateral leg Yesterday she had left wrist pain. [facility] Medical History Dry eyes Fatigue Morbid obesity Incisional hernia Surgical History History of back surgery Hx of lithotripsy Hx of hernia repair Hx of cholecystectomy H/O breast augmentation Hx of tonsillectomy Family History Mother Mental disorder Breast cancer, Onset Age: 50 Depression Anemia Fibromyalgia Father Stomach ulcer Sister Diabetes Brother Asthma Maternal Grandfather Colon cancer, Onset Age: 80 FH: prostate cancer Family/Other Ovarian cancer Social History Alcohol intake: current Alcohol intake frequency: holidays/special occasions only Patient Tobacco Use Status: Never used Tobacco Substance Use Type: Marijuana Current occupational status: employed Current occupation: [employer] Physical Exam Vital Signs: Last Vital Signs Pulse 65 05/07/25 09:14 BP 122/80 05/07/25 09:14 Pulse Ox 95 05/07/25 09:14 Oxygen Delivery Method Room Air 05/07/25 09:14 BMI result Body Mass Index 41.5 Const Other: General: Comfortable CVS: RRR Respiratory: clear to auscultation bilaterally. Good respiratory effort Skin: Erythematous lesion on right lateral calf MSK: Tender right 2nd and 3rd PIP, wrist, right MTPs with synovitis of bilateral ankles. Normal range of motion of upper extremities and lower extremities. Assessment & Plan Assessment & Plan (1) Systemic lupus: Comment: Inflammatory arthritis is not controlled. She is dependent on prednisone every other day or every 2 days. She also takes Aleve b.i.d. OTC. Discussed increased risk of GI side effects with taking both prednisone and Aleve. We also discussed long-term side effects on prednisone. She did not tolerate m ethotrexate due to side effects. We discussed options as well as retrial methotrexate with increasing folic acid. She is afraid of needles. 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 Negative anti ds-DNA, SS-A, SS-B. 01/2017 - present - hydroxychloroquine and prednisone; Eye exam OK 04/14,11/2022. 04/2017 - azathioprine stopped 01/2021 (equivocal response, product unavailable). Prednisone off/on since 02/2021. 10/2020 Benlysta [place] - 07/2021( patient discontinued it due to skin rashes. Did not feel much improvement). MTX 01/2025 caused headache, nausea and fatigue. Code(s): M32.9 - Systemic lupus erythematosus, unspecified Category: Medical Qualifiers: Systemic lupus erythematosus type: other Systemic lupus erythematosus organ involvement: other Qualified Code(s): M32.19 - Other organ or system involvement in systemic lupus erythematosus Plan: Continue hydroxychloroquine 400 mg daily. Last eye exam April 2023. She will schedule eye exam She will discontinue prednisone She will not use a leaving prednisone together. She will continue to use Aleve OTC b.i.d. Restart methotrexate 12.5 mg once weekly Increase folic acid 2 mg daily. She will need labs 1 month after starting methotrexate with CBC, creatinine, AST, ALT Consider changing folic acid to leucovorin if she continues to have side effects on methotrexate Return to clinic in 3 months (2) Long-term use of hydroxychloroquine: Comment: Eye exam 04/2023. Code(s): Z79.899 - Other long term care administrator (current) drug therapy Category: Medical Plan: I have asked her to schedule eye exam (3) Keratoconjunctivitis sicca: Comment: Noted on exam 2022. Code(s): M35.01 - Sjogren syndrome with keratoconjunctivitis Category: Medical Plan: SSA/SSB ordered I have asked her to schedule eye exam Return to clinic in 3 months (4) Psoriasis: Code(s): L40.9 - Psoriasis, unspecified Category: Medical Plan 05/2024 Orders: Orders Complete Blood Count Auto Diff Today Z79.899 - Other long term care administrator (current) drug therapy Alanine Aminotransferase Today Z79.899 - Other half-way (current) drug therapy Aspartate Amino Transferase Today Z79.899 - Other long term care administrator (current) drug therapy Erythrocyte Sedimentation Rate Today Z79.899 - Other half-way (current) drug therapy UA ClnCatch+Micro w/rflx Cult Today M32.9 - Systemic lupus erythematosus, unspecified Sjogren's Antibodies Today M35.01 - Sjogren syndrome with keratoconjunctivitis Creatinine Today Z79.899 - Other half-way (current) drug therapy C Reactive Protein Today Z79.899 - Other half-way (current) drug therapy Complement C3 Today M32.9 - Systemic lupus erythematosus, unspecified Complement C4 Today M32.9 - Systemic lupus erythematosus, unspecified Anti DNA DS Antibody Today M32.9 - Systemic lupus erythematosus, unspecified Medications: Changed From folic acid 1 mg PO DAILY 30 tabs 11RF To folic acid 2 mg (2 x 1 mg) PO DAILY 60 tabs 11RF Refilled methotrexate sodium Labs due in 4 weeks 12.5 mg (5 x 2.5 mg) PO QWEEK 20 tabs 0RF 4 weeks Coding Level of Care Code Est Pt Level 4 (83292) Complex EM visit Add On G2211 Diagnoses Other systemic lupus erythematosus with other organ involvement M32.19 Systemic lupus erythematosus type: other Systemic lupus erythematosus organ involvement: other Long-term use of hydroxychloroquine Z79.899 Keratoconjunctivitis sicca M35.01 Psoriasis L40.9
[2025-05-07 09:14] VITALS: BP 122/80; PULSE 65; O2SAT 95; BMI 41.5
--- OUTSIDE RECORDS SUMMARY | 2025-05-07 09:50 | XMS_ITS | Encounter Summary ---
Author Organization Address [address] [place] [address] Care Team Providers Care Petroleum Products District Supervisor Name Role Phone Physician, No Pcp Primary Care Provider Unavaila ble Encounter Details Date Type Department Care Team (Late st Contact Info) Description 01/04/2025 Lab Requisition [facility] - Main Lab [address] [place] [address] [place], [place] [address] [facility] [address] [place] [address] Dysuria Social History Tobacco Use Types Packs/Day [...] no further workup 01/05/2025 12:35 PM EDT [facility] Urine Urine specimen from urethra / Unknown Non-blood Collection / Unknown 01/04/2025 01/04/2025 5:44 PM EDT us Tara [facility] MICROBIOLOGY - GENERAL ORDERABLES Final Result [facility] [address] [place] [address], documented in this encounter Visit Diagnoses Diagnosis Dysuria documented in this encounter Care Teams Petroleum Products District Supervisor Relationship Specialty Start Date End Date Physician, No Pcp PCP - General 07/20/24 documented as of this encounter
--- OUTSIDE RECORDS SUMMARY | 2025-05-07 09:50 | XMS_ITS | Clinical Summary ---
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 Negative anti ds-DNA, SS-A, SS-B 01/2017 - present - hydroxychloroquine and prednisone; Eye exam OK 04/14 - azathioprine stopped 01/2021 (equivocal response, product unavailable). Prednisone off 02/2021 Benlysta HTN (hypertension) 08/16/2016 Morbid obesity ([facility] [place]24, [facility] [place] V28) 2015 Iron deficiency anemia 10/15/2009 Immunizations Immunization Administration Dates Next Due Hep B, Unspecified 12/14/2011 Influenza Quadravalent, MDCK , 0.5ml, preservative free (Flucelvax) 6mo and older 06/13/2022,04/13/2021,03/14/2019 Influenza Quadravalent, MDCK , 0.5ml, with preservative (Flucelvax) 6mo and older 04/10/2020 Influenza Quadrivalent, 0.5m l, preservative free (Fluarix; FluLaval; Fluzone) ages 6mo and older (Afluria) 3yo and older 05/13/2023 Influenza, Unspecified 04/10/2020 Measles 12/14/2011 Mumps 12/14/2011 PPD Test 02/22/2017,10/07/2009,09/23/2008 MetaMed SARS-CoV-2 COVID-19, mRNA, LNP-S, preservative free 04/23/2021,10/31/2020,10/01/2020 Td Tetanus diptheria (Tdvax) 7yo and older 01/16 Tdap Tetanus diptheria acell ular pertussis (Boostrix; Adacel) 7yo and older 08/27/2008 Varicella live (Varivax) 12mo and older 12/14/19 12 Surgical History Surgery Date Site/Laterality Comments BREAST RECONSTRUCTION PROCEDURE: BREAST RECONSTRUCTION; COMMENT: augmentation TONSILLECTOMY PROCEDURE: HISTORICAL TONSILLECTOMY BACK SURGERY 04/2009 PROCEDURE: HISTORICAL BACK SURGERY CHOLECYSTECTOMY 10/2009 PROCEDURE: [place] CHOLECYSTECTOMY BREAST SURGERY 1999 Bilateral PROCEDURE: [place] UNLISTED PROCEDURE BREAST; COMMENT: 17 yrs ago implants HERNIA REPAIR PROCEDURE: HISTORICAL HERNIA REPAIR/UMB CYSTOSCOPY 10/08/2021 PROCEDURE: [place] CYSTOURETHROSCOPY; COMMENT: Dr. Petit KIDNEY STONE SURGERY 04/19/2022 Bilateral PROCEDURE: [place] NEPHROLITHOTOMY REMOVAL CALCULUS; COMMENT: By Dr. Kong - bilateral lithotripsy with stent placement Medical History Medical History Date Comments PCOS (polycystic ovarian syndrome) DX:PCOS (polycystic ovarian syndrome) Anemia DX:Anemia; COMME NT: irregular periods Hernia DX:Hernia Lupus DX:Lupus Diverticulitis 05/2018 DX:Diverticuliti s; COMMENT: seen in [facility] ER Renal stones 01/05/2022 DX:Renal stones; [...] Health Maintenance Due Date Last Done Comments Colorectal Cancer Screening: Colonoscopy 1978 Hepatitis B Vaccines (2 of 3 - 19+ 3-dose series) 01/11/2012 12/14/2011 Social Influencers of Health Screening 05/30/2022 Breast Cancer Screening 10/16/2022 10/16/2020, 02/11 Cholesterol Screening (Lipid Panel) 03/14/2024 03/14/2019 Depression Screening 06/27/2024 Hypertension/CHF/CAD Annual BMP Blood Test 07/10/2024 11/09/2022, 06/11/2018 COVID-19 Vaccine ( season) 2025 05/13/2023, 06/13/2022, 04/23/2021, Additional history exists Influenza Vaccine (#1) 2025 , 06/13/2022, 04/13/2021, Additional history exists Cervical Cancer Screening: HPV 10/01/2026 10/01/2021 DTaP,Tdap,and Td Vaccines (3 - Td or Tdap) 01/16/2029 01/16/2019, 08/27/2008 RSV Immunization Adult Patients (1 - 1-dose 75+ series) 2053 Varicella Vaccines Aged Out 12/14/2011 No longer [...] 5 Years) and At-Risk Patients (6 to 49 Years) Aged Out No longer eligible based [...] Results * Annual BMP Blood Test (11/09/2022) Pathologist [facility] Annual BMP Blood Test ABSTRACTED [facility] Provider HEALTH MAINTENANCE Final Result * Cervical Cancer Screening: HPV (10/01/2021) [facility] Cervical Cancer Screening: HPV negative,a bstracted [facility] Provider HEALTH MAINTENANCE Final Result * HIV Screening (10/01/2021) [facility] HIV Screening ABSTRACTED [facility] Provider HEALTH MAINTENANCE Final Result * Hepatitis C Screening (10/01/2021) [facility] Hepatitis C Screening ABSTRACTED Historical Provider HEALTH [...] reviewed with CAD and compared to previous. Both standard and implant displaced views were performed bilaterally. Bilateral saline implants remain appropriately positioned and configured. The breasts are composed mostly of fatty tissue. No suspicious mass, architectural distortion or suspicious calcifications [...] us Historical Provider LAB BLOOD ORDERABLES Lily greco Result from Last 3 Months or Most Recently Relevant to Health Maintenance Insurance [employer] Advance Directives Documents on File Type Date Recorded Patient Telesales Consultant Expl anation Health Care Decision (hx) 10/16/2021 AD MOFFETT DIRECTIVE Health Care Decision (hx) 10/16/2021 AD MOFFETT DIRECTIVE Health Care Decision (hx) 10/16/2021 AD MOFFETT DIRECTIVE Health Care Decision (hx) 10/16/2021 AD MOFFETT DIRECTIVE Care Teams Painter Spray Relationship Specialty Start Date End Date Physician, No Pcp PCP - General 07/20/24
== END 2025-05-07 09:58 | disposition home or self-care (01) ==
LOC: HO.RHES 09:09
PROVIDERS: PCP Internal Medicine; Visit Provider Internal Medicine Rheumatology
DX: M32.19 Other organ or system involvement in systemic lupus erythematosus (principal); Z79.899 Other long term (current) drug therapy; M35.01 Sjogren syndrome with keratoconjunctivitis; L40.9 Psoriasis, unspecified
CPT/HCPCS: 99214

== ENCOUNTER 2025-06-03 13:48 | Outpatient (REF) | payer OTHER, SELFPAY ==
--- OUTSIDE RECORDS SUMMARY | 2024-02-24 07:59 | XMS_ITS | Continuity of Care Document ---
Author Organization [facility] Address [address] [place] [address] Phone Care Team Providers Care Physical Instructor Name Role Phone Elodia MORRISON, SAÚL, Tommie Unavailable Unavail able Procedures Procedure Date PT Did Not Receive Services 18-30mmHg Below knee gradient compressio n stockin Office/Outpt E&M Established 15 Mins- CT & MA Duplex Scan-extrem Veins; Comp- CT & MA Duplex Scan-extrem Veins; Uni/ CT & MA M Duplex Scan-extrem Veins; Uni/ CT & MA M Varithena, Single Truncal Vein - CT & MA Endovenous Laser, 1st Vein- CT & MA Duplex Scan-extrem Veins; Uni/ CT & MA M Inj Scleros Solut; Mx Veins 1- CT & MA A Ultrason Guidan Needle Bx-rad- CT & MA A Duplex Scan-extrem Veins; Uni/ CT & MA A Varithena, Single Truncal Vein - CT & MA Endovenous Laser, 1st Vein- CT & MA 18-30 mmHg Thigh length gradient meche ariana stocking Office/Oupt E&M New Pt 45 Mins- CT & MA Duplex Scan-extrem Veins; Comp- CT & MA Advance Directives Directive Yes / No Effective Date File Name No Information Encounters Encounter Description Practice Location Reason(s) For Visit Diagnoses Date Provider Providers Copied on Encounter [facility] Josefina GUZMAN, [address] [place] [address] Dr Maya 1000SuVeronica powers MD, [id number], tel:[phone] [facility] No Information 4 Elodia MORRISON, [facility]. [address], [place], [place], [id number], [place]. tel:[phone] [facility] Josefina GUZMAN, [address] [place] [address] Dr Maya 1000Suite [place]onica Hobbs [place], [id number], [place] tel:[phone] [facility] Chronic venous hypertension (idiopathic) without complications of bilateral lower extremity 4 Jake MORRISON RVT, RPVI Robert. [address] [place] [address], [id number], [place]. tel:[phone] Referring Provider: Rojelio Joseph MD, RVT, RPVI, [address] [place] [address], [id number] . tel:[phone] Office/Outpt E&M Established 15 Mins- CT & [place] [facility] Josefina MORRISON [facility], [address] [place] [address] Dr Maya 1000SuVeronica powers [place], [id number], [place] tel:[phone] [facility] Chronic venous hypertension (idiopathic) without complications of bilateral lower extremityLymp hedema, not elsewhere classified 4 Jake MORRISON RVT, LISA Serrato. [address] [place] [address], [id number], [place]. tel:[phone] [facility] Josefina GUZMAN, [address] [place] [address] Dr Maya 1000SuVeronica powers MD, [id number], [place] tel:[phone] [facility] Varicose veins of bilateral lower extremities with pain 4 Jake MORRISON RVT, RPVI Robert. [address] [place] [address], [id number], . tel:[phone] Referring Provider: Rojelio Joseph MD, RVT, LISA, [address] [place] [address], [id number] . tel:[phone] [facility], [address] [place] [address] Dr Maya 1000SuVeronica powers MD, [id number], tel:[phone] CVR - [facility] Chronic venous hypertension (idiopathic) with other complications of right lower extremity October-2 2- 4 Jake MORRISON RVT, RPVI Robert. [address] [place] [address], [id number], [place]. tel:[phone] Referring Provider: Rojelio Joseph MD, RVT, LISA, [address] [place] [address], [id number] . tel:[phone] [facility], [address] [place] [address] Dr Maya 1000Veronica powers [place], [id number], [place] tel:[phone] [facility] Encounter for follow-up examination after completed treatment for conditions other than malignant nePain in left leg 0- 4 Jake MORRISON RVT, RPVI Robert. [address] [place] [address], [id number], [place]. tel:[phone] Referring Provider: DOES NOT HAVE PCP. [facility], [address] [place] [address] Dr Maya 1000Suite Veronica Hobbs [place], [id number], [place] tel:[phone] [facility] Chronic venous hypertension (idiopathic) with inflammation of left lower extremity October-0 7- 4 Jake MORRISON RVT, RPVI Robert. [address] [place] [address], [id number], [place]. tel:[phone] [facility], [address] [place] [address] Dr Maya 1000SuVeronica powers MD, [id number], [place] tel:[phone] CV[facility] - [facility] Chronic venous hypertension (idiopathic) with inflammation of left lower extremity October-0 3-202 4 aJke MORRISON RVT, RPVI Robert. [address] [place] [address], [address], [id number], [place]. tel:[phone] Referring Provider: DOES NOT HAVE PCP. [facility] MD GUZMAN, [address] [place] [address] [facility] 1000[place]onica [place], [id number], tel:[phone] CVR - [facility] Encounter for follow-up examination after completed treatment for conditions other than malignant neVaricose veins of right lower extremity with pain 4 Jake MORRISON RVT, LISA Serrato. [address] [place] [address], [address], [id number], [place]. tel:[phone] Referring Provider: Rojelio Joseph MD, RVT, LISA, [address] [place] [address], [place] [id number] . tel:[phone] [facility], [address] [place] [address] [facility] [address] [address], [id number], [place] tel:[phone] [facility] (idiopathic) with inflammation of right lower extremity Apr-2 4 Precious Guerrero. [address] [place] [address], [id number], [place]. tel:[phone] Referring Provider: Yolanda Lang NP, [address] [place] [address], [place] [id number] . tel:[phone] [facility], [address] [place] [address] [facility] [address] [place] [address], [id number], [place] tel:[phone] [facility] venous hypertension (idiopathic) with other complications of right lower extremity Sep- 4 Jake MORRISON RVT, RPVI Robert. [address] [place] [address], [address], [id number], [place]. tel:[phone] Referring Provider: Rojelio Joseph MD, RVT, LISA, [address] [place] [address], [place] [id number] . tel:[phone] [facility] [address] Maya [address] [place] Hob[place], [id number], [place] tel:[phone] [facility] - [facility] Chronic venous hypertension (idiopathic) with inflammation of right lower extremity Sep- 4 Jake MORRISON RVT, RPVI Robert. [address] [place] [address], [id number], [place]. tel:[phone] Referring Provider: DOES NOT HAVE PCP. [facility], [address] [place] [address] Dr Maya [address] [place]onica Hobbs [place], [id number], [place] tel:[phone] [facility] Varicose veins of right lower extremity with other complications 4 Jake MORRISON RVT, RPVI Robert. [address] [place] [address], [id number], [place]. tel:[phone] [facility] [address] Maya [address] Veronica Hobbs MD, [id number], [place] tel:[phone] [facility] Varicose veins of bilateral lower extremities with other complications Aug-2 4 Jake MORRISON RVT, RPVI Robert. [address] [place] [address], [id number], [place]. tel:[phone] Referring Provider: DOES NOT HAVE PCP. Office/Oupt E&M New Pt 45 Mins- CT & [place] [facility] MD GUZMAN, [address] [place] [address] Dr Maya [address] [place]onica Hobbs [place], [id number], [place] tel:[phone] [facility] - [place] [facility] Varicose veins of bilateral lower extremities with other complications Pain in right lower legPain in left lower legLocalized edemaPruritus , unspecified Aug- 4 Jake MORRISON RVT, RPVI Robert. [address] [place] [address], [id number], [place]. tel:[phone] [facility] MD GUZMAN, [address] [place] [address] Dr Maya 1000SuVeronica powers MD, [id number], [place] tel:[phone] [facility] - [place] [facility] Varicose veins of bilateral lower extremities with pain Олег Joseph MD, DIPAK, LISA Serrato. [address] [place] [address], [id number], . tel:[phone] Referring Provider: Rojelio Joseph MD, DIPAK, LISA, [address] [place] [address], [place], [id number] . tel:[phone] Family History Family Member Type Diagnosis Age At Onset No Information Payers Payer name Insurance type Covered alliance party ID Flora ward(s) Abi [id number] Social History Type Description Quantity Date Captured Comments Sex Female Smoking Status No Information Chief Complaint And Reason For Visit No Information Reason For Referral Reason For Referral No Information Plan Of Treatment Date Type Action Status Goal Diet education completed Goal Diet education completed Goal Diet education completed Referral Ordered: Weight management: Referral to physician timeframe: 3 Months (related to Body mass index (BMI) 35.0-35.9, adult) ordered Referral Ordered: DOES NOT HAVE PCP timeframe: 3 Months (related to Essential (primary) hypertension) ordered Referral Ordered: Weight management: Referral to physician timeframe: 3 Months (related to Body mass index (BMI) 35.0-35.9, adult) ordered History Of Present Illness Encounter Date Complaint History Of Prese nt Illness No Information Functional Status Date Functional Assessmen t No Information Instructions Date Instruction Additional Infor mation Lifestyle education Related to E ssential (primary) hypertension Exercise education Related to Es sential (primary) hypertension Diet education Related to Essen tial (primary) hypertension Pre and post instruc tions reviewed and provided Related to Chronic venous hypertension (idiopathic) without complications of bilateral lower extremity Patient education booklet given Related to Chronic venous hypertension (idiopathic) without complications of bilateral lower extremity Lifestyle education Related to B jane mass index (BMI) 35.0-35.9, adult Giving Encouragement to exercise Related to Body mass index (BMI) 35.0-35.9, adult Diet education Related to Body mass index (BMI) 35.0-35.9, adult Patient education booklet given Related to Varicose veins of bilateral lower extremities with other complications Pre and post instruc tions reviewed and provided Related to Varicose veins of bilateral lower extremities with other complications Lifestyle education Related to B jane mass index (BMI) 35.0-35.9, adult Giving Encouragement to exercise Related to Body mass index (BMI) 35.0-35.9, adult Diet education Related to Body mass index (BMI) 35.0-35.9, adult Assessments Type Assessment Date No Information Patient Care Teams Name Effective Dates (start - stop) Status Members No Information
[2025-06-03 18:26] LABS: MANUAL DIFF FLAG NO
[2025-06-03 18:37] LABS: Hematocrit 46.3 % (37.0-47.0); Hemoglobin 15.6 g/dl (12.0-16.0); Imm Gran Abs Auto 0.05 X10*3/uL (0.00-0.03); Imm Gran Pct Auto 0.6 % (0.0-0.4); Lymphocytes Absolute Auto 1.9 X10*3/uL (1.2-4.9); Mean Corpuscular HGB Conc 33.7 g/dl (31.0-35.0); Mean Corpuscular Hemoglobin 30.4 pg (27.0-33.0); Mean Corpuscular Volume 90.3 fL (80.0-98.0); NRBC Abs Auto 0.000 X10*3/uL (0.0-0.012); NRBC Pct Auto 0.0 /100WBC (0.0-0.2); Platelet Count 231 X10*3/uL (160-400); Red Blood Count 5.13 X10*6/uL (4.20-5.50); White Blood Count 9.0 X10*3/uL (4.8-10.8)
[2025-06-03 18:55] LABS: Alanine Aminotransferase 26 U/L (0-31); Aspartate Amino Transferase 34 U/L (5-31); Estimated Glomerular Filt Rate > 60
[2025-06-03 18:59] LABS: Appearance Urine Clear; Glucose Urine UA Negative (Negative); PH 6.5 (5.0-9.0); Specific Gravity - Urine 1.020 (1.005-1.025); UMIC TRIGGER UACC YES
[2025-06-03 19:47] LABS: Erythrocyte Sedimentation Rate 8 MM/HR (0-20)
--- OUTSIDE RECORDS SUMMARY | 2025-06-03 22:35 | XMS_ITS | Clinical Summary ---
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 Negative anti ds-DNA, SS-A, SS-B 01/2017 - present - hydroxychloroquine and prednisone; Eye exam OK 04/14 - azathioprine stopped 01/2021 (equivocal response, product unavailable). Prednisone off 02/2021 Benlysta HTN (hypertension) 08/16/2016 Morbid obesity 01/20/2016 Iron deficiency anemia 10/15/2009 Immunizations Immunization Administration [...] Measles 12/14/2011 Mumps 12/14/2011 PPD Test 02/22/2017,10/07/2009,09/23/2008 Pfizer SARS-CoV-2 COVID-19, mRNA, LNP-S, preservative free 04/23/2021,10/31/2020,10/01/2020 Td Tetanus diptheria (Tdvax) 7yo and older 01/16 Tdap Tetanus diptheria acell ular pertussis (Boostrix; Adacel) 7yo and older 08/27/2008 Varicella live (Varivax) 12mo and older 12/14/19 12 Surgical History Surgery Date Site/Laterality Comments BREAST RECONSTRUCTION PROCEDURE: BREAST RECONSTRUCTION; COMMENT: augmentation TONSILLECTOMY PROCEDURE: HISTORICAL TONSILLECTOMY BACK SURGERY 04/2009 PROCEDURE: HISTORICAL BACK SURGERY CHOLECYSTECTOMY 10/2009 PROCEDURE: [place] CHOLECYSTECTOMY BREAST SURGERY 1999 Bilateral PROCEDURE: [place] UNLISTED PROCEDURE BREAST; COMMENT: 17 yrs ago implants HERNIA REPAIR PROCEDURE: HISTORICAL HERNIA REPAIR/UMB CYSTOSCOPY 10/08/2021 PROCEDURE: [place] CYSTOURETHROSCOPY; COMMENT: Dr. Petit KIDNEY STONE SURGERY 04/19/2022 Bilateral PROCEDURE: [place] NEPHROLITHOTOMY REMOVAL CALCULUS; COMMENT: By Dr. Kong - bilateral lithotripsy with stent placement Medical History Medical History Date Comments PCOS (polycystic ovarian syndrome) DX:PCOS (polycystic ovarian syndrome) Anemia DX:Anemia; COMME NT: irregular periods Hernia DX:Hernia Lupus DX:Lupus Diverticulitis 05/2018 DX:Diverticuliti s; COMMENT: seen in [facility] ER Renal stones 01/05/2022 DX:Renal stones; COMMENT: [...] Results * Annual BMP Blood Test (11/09/2022) [facility] Annual BMP Blood Test ABSTRACTED [facility] Provider HEALTH MAINTENANCE Final Result * Cervical Cancer Screening: HPV (10/01/2021) [facility] Cervical Cancer Screening: HPV negative,a bstracted [facility] Provider HEALTH MAINTENANCE Final Result * HIV Screening (10/01/2021) [facility] HIV Screening ABSTRACTED [facility] Provider HEALTH MAINTENANCE Final Result * Hepatitis C Screening (10/01/2021) [facility] Hepatitis C Screening ABSTRACTED [facility] Provider HEALTH MAINTENANCE Final Result * SCR [...] mg/dL Blood Venous blood specimen / Unknown Historical Provider LAB BLOOD ORDERABLES Lily l Result from Last 3 Months or Most Recently Relevant to Health Maintenance Insurance [employer] Advance Directives Documents on File Type Date Recorded Patient Bricklayer'S Assistant Expl anation Health Care Decision (hx) 10/16/2021 AD MOFFETT DIRECTIVE Health Care Decision (hx) 10/16/2021 AD MOFFETT DIRECTIVE Health Care Decision (hx) 10/16/2021 AD MOFFETT DIRECTIVE Health Care Decision (hx) 10/16/2021 AD MOFFETT DIRECTIVE Care Teams Link Trainer Maintenance Man Relationship Specialty Start Date End Date Physician, No Pcp PCP - General 07/20/24
--- OUTSIDE RECORDS SUMMARY | 2025-06-03 22:35 | XMS_ITS | Encounter Summary ---
Author Organization [facility] Address [address] [place] [address] Care Team Providers Care Seismic Computer Name Role Phone Physician, No Pcp Primary Care Provider Unavaila ble Encounter Details Date Type Department Care Team (Late st Contact Info) Description 01/04/2025 Lab Requisition [facility] Lab [address] [place] [address] [place], [place] [address] [place] [address] Dysuria Social History Tobacco Use Types Packs/Day [...] no further workup 01/05/2025 12:[address] [facility] Urine Urine specimen from urethra / Unknown Non-blood Collection / Unknown 01/04/2025 01/04/2025 5:44 PM EDT us [facility] MICROBIOLOGY - GENERAL ORDERABLES Final Result [facility] [address] [place] [address], documented in this encounter Visit Diagnoses Diagnosis Dysuria documented in this encounter Care Teams Seismic Computer Relationship Specialty Start Date End Date Physician, No Pcp PCP - General 07/20/24 documented as of this encounter
--- OUTSIDE RECORDS SUMMARY | 2025-06-03 22:35 | XMS_ITS | Clinical Summary ---
Author Organization [facility] Prior to 11/24/[address] [place] [id number] Care Team Providers Care Buttermaker Name Role Phone Buck Brady MD Primary Care Provider [phone] Social History Tobacco Use Types Packs/Day Years [...] age to complete this topic Care Teams Buttermaker Relationship Specialty Start Date End Date Buck Brady MD PCP - General Internal Medicine 09/04/20
[2025-06-05 13:33] LABS: Antibody to SS-A Antigen <1.0 NEG AI (<1.0 NEG); Antibody to SS-B Antigen <1.0 NEG AI (<1.0 NEG)
== END 2025-06-03 13:49 | disposition home or self-care (01) ==
LOC: HO.HKASLDS 13:48
PROVIDERS: Visit Provider Internal Medicine Rheumatology
DX: M35.01 Sjogren syndrome with keratoconjunctivitis (principal); Z79.899 Other long term (current) drug therapy
CPT/HCPCS: 36415; 81001; 82565; 84450; 84460; 85025; 85652; 86140; 86160; 86225; 86235